=== PATIENT | female | born 1940 | race Two or more races ===

== ENCOUNTER 2019-07-27 10:09 | Emergency (ER) | payer MEDICARE, OTHER ==
[2019-07-27 10:19] VITALS: RESP 18
[2019-07-27] MEDS ORDERED: LIDOCAINE 1% INJ 10MG/ML (20 ML MDV) SQ ONE (10:27)
[2019-07-27] MEDS ORDERED: DIPH,PERTUS(ACELL)TETVAC-LF 0.5 ML VIAL IM ONE (10:27)
[2019-07-27] MEDS ORDERED: RABIES VACCINE (PCEC) 2.5 UNIT KIT IM ONE (10:28)
[2019-07-27] MEDS ORDERED: RABIES IMMUNE GLOB 300 UNIT/ML 1 ML VIAL IM ONE ×2 (10:28→10:45)
--- NOTE | 2019-07-27 10:38 | ED ---
Wound/Laceration HPI - General Chief Complaint: Wound/Laceration Stated Complaint: Hand laceration Time Seen by Provider: 07/27/19 10:21 Source: patient, RN notes reviewed Mode of arrival: ambulatory Limitations: no limitations - History of Present Illness Initial Comments: This is a 70-year-old female sent emergency Department chief complaint of fall, Bite and scratches. Patient states she heard a noise around 7 AM this morning patient states that she went out slipped on her deck fell to her right side. She has minimal right hip pain she is able to family. Denies any head injury no loss conscious. She states she fell rate in the midst of her cat and feral cat fighting. Patient states that she has multiple bite calvo, scratch calvo to her right arm. Patient denies any chest pain or shortness breath. Patient's unsure when her last tetanus was. Patient states that she did thoroughly clean out the wound. - Related Data Previous Rx's Medication Instructions Recorded Amoxicillin/Potassium Clav 1 tab PO Q12HR #20 tab 07/27/19 [Augmentin 875-125 Tablet] Allergies Allergy/AdvReac Type Severity Reaction Status Date / Time codeine Allergy Confusion Verified 07/27/19 10:20 Review of Systems ROS Statement: Those systems with pertinent positive or pertinent negative responses have been documented in the HPI. ROS Other: All systems not noted in ROS Statement are negative. 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 Absent: scleral icterus, conjunctival injection, periorbital swelling ENT exam: Present: normal exam, normal oropharynx, mucous membranes moist Neck exam: Present: normal inspection. Absent: tenderness, meningismus, lymphadenopathy Respiratory exam: Present: normal lung sounds bilaterally. Absent: respiratory distress, wheezes, rales, rhonchi, stridor Cardiovascular Exam: Present: regular rate, normal rhythm, normal heart sounds. Absent: systolic murmur, diastolic murmur, rubs, gallop, clicks Extremities exam: Present: other (Right hand there are 3 lacerations to approximately 3 cm, and two 2 cm there is minimal bleeding at this time there are multiple puncture wounds, scratch calvo noted over the right forearm no active bleeding patient has full range of motion of the right hand, right forearm mild tenderness the right hand neurovascular intact, right hip there is minimal tenderness on the posterior aspect, she does have full range of motion she is able to ambulate with minimal difficulty. Neurovascular intact remaining extremity exam within normal limits.) Back exam: Present: full ROM. Absent: tenderness, paraspinal tenderness, vertebral tenderness Neurological exam: Present: alert, oriented X3, CN II-XII intact, reflexes normal. Absent: motor sensory deficit Skin exam: Present: warm, dry, intact, normal color. Absent: rash Course Vital Signs 07/27/19 10:11 Temperature 97.9 F Pulse Rate 104 H Respiratory 18 Rate Blood Pressure 167/82 O2 Sat by Pulse 98 Oximetry Procedures - Laceration Laceration #1 Consent Obtained: verbal consent Indication: laceration Site: hand (Right hand) Size (cm): 3 Description: irregular Depth: simple, single layer Anesthetic Used: lidocaine 1%, without epi Anesthesia Technique: local infiltration Amount (mls): 3 Pre-repair: wound explored, irrigated extensively, deep structures intact Type of Sutures: nylon Size of Sutures: 4-0 Number of Sutures: 3 Technique: simple, interrupted Patient Tolerated Procedure: well, no complications Laceration #2 Consent Obtained: verbal consent Indication: laceration Site: hand (Right hand) Size (cm): 2 Description: linear Depth: simple, single layer Anesthetic Used: lidocaine 1%, without epi Anesthesia Technique: local infiltration Amount (mls): 3 Pre-repair: wound explored, irrigated extensively Type of Sutures: nylon Size of Sutures: 4-0 Number of Sutures: 2 Technique: simple, interrupted, running Patient Tolerated Procedure: well, no complications Laceration #3 Consent Obtained: verbal consent Indication: laceration Site: hand (Right hand) Size (cm): 2 Description: linear Depth: simple, single layer Anesthetic Used: lidocaine 1%, without epi Anesthesia Technique: local infiltration Amount (mls): 3 Pre-repair: wound explored, irrigated extensively, deep structures intact Type of Sutures: nylon Size of Sutures: 4-0 Number of Sutures: 2 Technique: simple, interrupted Patient Tolerated Procedure: well, no complications Medical Decision Making - Medical Decision Making 78-year-old female presented for fall, cat bite and scratches. Her wounds were thoroughly cleaned, tetanus is updated, 3 lacerations were closed using sutures were loosely approximated. Patient was given rabies vaccine and immunoglobulin. Patient was given prescription for additional days for repeat vaccine. She was placed on oral antibiotics. She was given strict return parameters for signs and symptoms of infection. Disposition Clinical Impression: Cat bite of hand, Laceration of right hand, Contusion of right hip Disposition: HOME SELF-CARE Condition: Stable Instructions (If sedation given, give patient instructions): Animal Bite (ED), Care For Your Stitches (DC) Additional Instructions: Have sutures removed in 10-14 days. Please return to the Emergency Department if symptoms worsen or any other concerns. Prescriptions: Amoxicillin/Potassium Clav [Augmentin 875-125 Tablet] 1 tab PO Q12HR #20 tab Is patient prescribed a controlled substance at d/c from ED?: No Referrals: Elton Quezada MD [Primary Care Provider] - 1-2 days Time of Disposition: 11:47
[2019-07-27] MEDS ORDERED: RABIES IMMUNE GLOB 300 UNIT/ML 5 ML VIAL IM ONE (10:45)
--- NOTE | 2019-07-27 11:07 | XR ---
EXAMINATION TYPE: XR hand complete RT DATE OF EXAM: 07/27/2019 COMPARISON: None HISTORY: Puncture wounds from Cats TECHNIQUE: Three-view right hand FINDINGS: No radiopaque foreign bodies are evident. No acute fractures or dislocations are evident. T here is soft tissue swelling and some injury along the dorsum of the hand. IMPRESSION: 1. No acute osseous abnormality right hand. 2. Soft tissue swelling in injury along the dorsum of the hand.
--- NOTE | 2019-07-27 11:08 | XR ---
EXAMINATION TYPE: XR Hip RT and AP Pelvis DATE OF EXAM: 07/27/2019 COMPARISON: None HISTORY: Fall, pain TECHNIQUE: 2 view right hip supplemented with AP pelvis FINDINGS: Femoral heads articulate with the acetabulum. Mild joint space narrowing is present. Symphy sis pubis and sacroiliac joints are intact. Degenerative changes are at sacroiliac joints. No acute fracture at the right hip is evident. IMPRESSION: 1. No acute osseous abnormality right hip
[2019-07-27 12:45] VITALS: BP 178/90; PULSE 94; TEMP 98.6
== END 2019-07-27 12:00 | disposition home or self-care (01) ==
LOC: SUPCPDRO 10:09 → EC 10:09
DX: S41.151A Open bite of right upper arm, initial encounter (principal); S61.411A Laceration without foreign body of right hand, initial encounter; S70.01XA Contusion of right hip, initial encounter; Z29.14 Encounter for prophylactic rabies immune globulin; Z23 Encounter for immunization; Z88.5 Allergy status to narcotic agent; W01.0XXA Fall on same level from slipping, tripping and stumbling without subsequent striking against object, initial encounter; W55.01XA Bitten by cat, initial encounter; Y93.89 Activity, other specified; Y92.009 Unspecified place in unspecified non-institutional (private) residence as the place of occurrence of the external cause
CPT/HCPCS: 73502; 73130; 90675; 90715; 90375 ×2; 90471; 96372 ×3; 99283; 12002; J2001

== ENCOUNTER 2019-07-28 08:44 | Inpatient (IN) | payer MEDICARE, OTHER ==
[2019-07-28] MEDS ORDERED: AMPICILLIN-SULBACTAM 3 GM in SODIUM CHLORIDE 0.9% 100 ML IVPB STA (09:15)
--- NOTE | 2019-07-28 09:18 | ED ---
General Adult HPI - General Chief complaint: Skin/Abscess/Foreign Body Stated complaint: Revisit/cat bite Time Seen by Provider: 07/28/19 08:56 Source: patient Mode of arrival: ambulatory Limitations: no limitations - History of Present Illness Initial comments: Dictation was produced using [employer] dictation software. please excuse any grammatical, word or spelling errors. This patient was cared for during a federal and state declared state of e mergency secondary to Covid 19 Chief Complaint: 78-year-old female past surgical history of COPD presents with worsening right hand pain. History of Present Illness: Patient is 78-year-old female she was attacked by a stray cat yesterday morning after there was a confrontation between her cat and the stray cat. Patient states she was bitten and scratched several times to the right upper extremity. Patient has had severe extremity infection in the past that she reports almost lead to an amputation. She was seen here yesterday provided with antibiotics and rabies treatment. She was told to return to the emergency Department with any worsening symptoms. Since being discharged she states that her right hand has been getting more swollen making it difficult for her to close her fingers. She complains of increased pain to the dorsum of the right hand. She denies any constitutional symptoms. The ROS documented in this emergency department record has been reviewed and confirmed by me. Those systems with pertinent positive or negative responses have been documented in the HPI. All other systems are other negative and/or noncontributory. PHYSICAL EXAM: General Impression: Alert and oriented x3, not in acute distress HEENT: Normocephalic atraumatic, extra-ocular movements intact, pupils equal and reactive to light bilaterally, mucous membranes moist. Cardiovascular: Heart regular rate and rhythm Chest: Able to complete full sentences, no retractions, no tachypnea Abdomen: abdomen soft, non-tender, non-distended, no organomegaly Musculoskeletal: Pulses present and equal in all extremities, no peripheral edema Motor: no focal deficits noted Neurological: CN II-XII grossly intact, no focal motor or sensory deficits noted Skin: Intact with no visualized rashes Right upper extremity: Lacerations are clean and dry, dorsum of the right hand is erythematous and warm to the touch swelling. There is several superficial abrasions to the right forearm. There is no lymphadenopathy to the axillary area Psych: Normal affect and mood ED course: y Old female with cellulitic changes to the right hand after bite injury from a cat history. Vital signs upon arrival are within except limits. Clinical presentation consistent with animal bite cellulitis. Laboratory evaluation obtained. Leukocytosis 11.5. ESR 74, glucose 116, C- reactive protein of 47.4. Considering elevation of inflammatory markers patient be admitted for IV antibiotics and medical monitoring. Discussed patient case with Dr. Mike who is acceptable of patient's care. He requested infectious disease be on consult. Patient was given Unasyn IV. She is agreeable with disposition. EKG interpretation: Ventricular rate 91, normal sinus rhythm, MA 160, QRS 90, QTc 462. No MA prolongation, no QTC prolongation, no ST or T-wave changes noted. Overall, this EKG is unremarkable - Related Data Previous Rx's Medication Instructions Recorded Amoxicillin/Potassium Clav 1 tab PO Q12HR #20 tab 07/27/19 [Augmentin 875-125 Tablet] Allergies Allergy/AdvReac Type Severity Reaction Status Date / Time codeine Allergy Confusion Verified 07/28/19 08:52 Review of Systems ROS Statement: Those systems with pertinent positive or pertinent negative responses have been documented in the HPI. ROS Other: All systems not noted in ROS Statement are negative. 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, kidney stones Smoking Status: Never smoker Past Alcohol Use History: None Reported Past Drug Use History: None Reported General Exam Limitations: no limitations Course Vital Signs 07/28/19 07/28/19 08:50 10:00 Temperature 99.0 F 99.0 F Pulse Rate 98 89 Respiratory 18 18 Rate Blood Pressure 180/98 156/88 O2 Sat by Pulse 96 98 Oximetry Medical Decision Making - Lab Data Result diagrams: 07/28/19 09:25 07/28/19 09:25 Lab Results 07/28/19 07/28/19 07/28/19 Range/Units 09:25 09:25 09:25 WBC 11.5 H (3.8-10.6) k/uL RBC 4.29 (3.80-5.40) m/uL Hgb 13.1 (11.4-16.0) gm/dL Hct 41.4 (34.0-46.0) % MCV 96.4 (80.0-100.0) fL MCH 30.5 (25.0-35.0) pg MCHC 31.6 (31.0-37.0) g/dL RDW 13.7 (11.5-15.5) % Plt Count 204 (150-450) k/uL Neutrophils % 72 % Lymphocytes % 18 % Monocytes % 6 % Eosinophils % 1 % Basophils % 1 % Neutrophils # 8.3 H (1.3-7.7) k/uL Lymphocytes # 2.1 (1.0-4.8) k/uL Monocytes # 0.7 (0-1.0) k/uL Eosinophils # 0.1 (0-0.7) k/uL Basophils # 0.1 (0-0.2) k/uL ESR 74 H (0-20) mm/hr Sodium 138 (137-145) mmol/L Potassium 4.4 (3.5-5.1) mmol/L Chloride 103 (98-107) mmol/L Carbon Dioxide 27 (22-30) mmol/L Anion Gap 8 mmol/L BUN 15 (7-17) mg/dL Creatinine 0.96 (0.52-1.04) mg/dL Est GFR (CKD-EPI)AfAm 66 (>60 ml/min/1.73 sqM) Est GFR (CKD-EPI)NonAf 57 (>60 ml/min/1.73 sqM) Glucose 116 H (74-99) mg/dL Plasma Lactic Acid Caleb 1.5 (0.7-2.0) mmol/L Calcium 9.3 (8.4-10.2) mg/dL C-Reactive Protein 47.4 H (<10.0) mg/L Disposition Clinical Impression: Cellulitis Disposition: ADMITTED IP TO THIS HOSP Condition: Fair Referrals: Fred Benoit MD [Primary Care Provider] - 1-2 days Decision Time: 10:54
[2019-07-28 09:46] LABS: Basophils # (A) 0.1 k/uL (0-0.2); Basophils % (A) 1 %; Eosinophils # (A) 0.1 k/uL (0-0.7); Eosinophils % (A) 1 %; HCT 41.4 % (34.0-46.0); HGB 13.1 gm/dL (11.4-16.0); Lymphocytes # (A) 2.1 k/uL (1.0-4.8); Lymphocytes % (A) 18 %; MCH 30.5 pg (25.0-35.0); MCHC 31.6 g/dL (31.0-37.0); MCV 96.4 fL (80.0-100.0); Mean Platelet Volume 7.5; Monocytes # (A) 0.7 k/uL (0-1.0); Monocytes % (A) 6 %; Neutrophils # (A) 8.3 k/uL (1.3-7.7); Neutrophils % (A) 72 %; Platelet Count 204 k/uL (150-450); RBC 4.29 m/uL (3.80-5.40); RDW 13.7 % (11.5-15.5); WBC 11.5 k/uL (3.8-10.6)
[2019-07-28 10:01] LABS: C Reactive Protein 47.4 mg/L (<10.0); Calcium 9.3 mg/dL (8.4-10.2); Potassium 4.4 mmol/L (3.5-5.1)
[2019-07-28 10:37] LABS: Erythrocyte Sedimentation Rate 74 mm/hr (0-20)
[2019-07-28] MEDS ORDERED: NALOXONE 0.4 MG/ML 1 ML VIAL IV PRN (10:51)
[2019-07-28] MEDS ORDERED: ACETAMINOPHEN TAB 325 MG TAB PO PRN (10:51)
[2019-07-28] MEDS: SODIUM CHLORIDE 0.9% 1,000 ML IV SCH (11:02)
[2019-07-28] MEDS: oxyCODONE-APAP 5-325MG 1 EACH TAB PO PRN ×2 (12:24→20:32)
--- NOTE | 2019-07-28 13:55 | P.CNOR ---
History of Present Illness - [facility] Consult date: 07/28/19 History of present illness: This patient is a 78-year-old female The presented to [facility] ER yesterday with complaints of increasing right hand Pain and swelling. The patient initially presented to the ER yesterday, after being bit by a stray cat. She states he stray cat and her own cat got into a fight, and she fell in betw een them and the stray cat began scratching her right hand. Upon presentation to the ER, her wounds were irrigated and closed, rabies and tetanus vaccine were updated. The patient was discharged on Augmentin and instructed to return if symptoms worsen. Patient states that this morning she developed significant redness and warmth, as well as swelling and pain to the right hand. Therefore, she returned to the emergency department for evaluation. Patient was afebrile upon presentation, white blood cell count 11.5, ESR 74, CRP 47.4. The patient was admitted under the care by internal medicine with consult with orthopedic surgery. At the time of my exam, the patient is complaining of isolated right hand pain. She states she is also experiencing back pain, although this is chronic and is u nchanged from her fall. She states otherwise she feels well. She denies chest pain, shortness of breath, nausea, vomiting, fevers, chills. She denies loss of appetite. Vital signs stable. 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, kidney stones Past Anesthesia/Blood Transfusion Reactions: No Reported Reaction Past Psychological History: No Psychological Hx Reported Smoking Status: Former smoker Past Alcohol Use History: None Reported Past Drug Use History: None Reported - Past Family History Mother Family Medical History: Cancer Additional Family Medical History / Comment(s): brain tumor Father Family Medical History: CVA/TIA Medications and Allergies Home Medications Medication Instructions Recorded Confirmed Type Amoxicillin/Potassium Clav 1 tab PO Q12HR #20 tab 07/27/19 07/28/19 Rx [Augmentin 875-125 Tablet] Aspirin EC [Ecotrin] 325 mg PO DAILY PRN 07/28/19 07/28/19 History Cetirizine HCl 10 mg PO DAILY 07/28/19 07/28/19 History Allergies Allergy/AdvReac Type Severity Reaction Status Date / Time codeine Allergy Confusion Verified 07/28/19 10:57 Physical Examination On examination, the patient is sitting in bed in no apparent distress. She is alert and oriented 3. Her head appears normocephalic and traumatic. Her breathing appears unlabored. On inspection of her right upper extremity, there are multiple superficial lacerations to the dorsal forearm. On inspection of the right hand, there Is a laceration between the bases of the middle finger and ring finger with intact nylon sutures. There are also 2 additional lacerations to the more proximal dorsum of the hand with intact nylon sutures. The skin bridge between these 2 lacerations appears nonviable. A very small amount of serosanguineous drainage present. There is diffuse swelling, erythema, and warmth of the dorsum of the hand and wrist with extension into the dorsal forearm. There are no palpable areas of fluctuance or areas suspicious for abscess or fluid collection. Radial pulse +2. The hand is warm and well perfused. Motor and sensory function intact. No pain with PROM of the right shoulder, elbow, wrist, or fingers. Results Right hand x-ray 07/27/19: No acute fractures or foreign bodies. - Labs Labs: Abnormal Lab Results - Last 24 Hours (Table) 07/28/19 07/28/19 Range/Units 09:25 09:25 WBC 11.5 H (3.8-10.6) k/uL Neutrophils # 8.3 H (1.3-7.7) k/uL ESR 74 H (0-20) mm/hr Glucose 116 H (74-99) mg/dL C-Reactive Protein 47.4 H (<10.0) mg/L H & H 07/28/19 Range/Units 09:25 Hgb 13.1 (11.4-16.0) gm/dL Hct 41.4 (34.0-46.0) % Result Diagrams: 07/28/19 09:25 07/28/19 09:25 Assessment and Plan Assessment: Multiple cat bites right hand, with surrounding cellulitis Plan: - The clinical findings were discussed with the patient. The patient was discussed with Dr. Holguin. No surgical intervention is planned at this time. - Recommend continuation of IV antibiotics under the discretion of Dr. Sow. - We will continue to follow patient very closely and re-evaluate her clinical course in the morning.
[2019-07-28] MEDS ORDERED: LISINOPRIL 5 MG TAB PO STA (14:31)
--- NOTE | 2019-07-28 14:38 | P.HPIM ---
History of Present Illness H&P Date: 07/28/19 This is a 78 year old female patient of Dr. Benoit with past medical h istory of shingles, borderline hypertension, hyperlipidemia on diet control, COPD, history of uterine cancer status post hysterectomy at age 28, generalized osteoarthritis, eczema, history of fall from fallopian tube mass removed, history of migraine headaches resolved after menopause, remote history of tobacco use and dependence. The patient states that yesterday morning she stepped out of her house and there was a feral cat outside and her own cat in the house. She ended up falling as a slip and fall and the cats attacked each other. She was in the middle of it ended up getting bitten and scratched on the right arm, forearm and hand. She initially came into [facility] emergency center yesterday and had stitches placed, tetanus status updated, received her first dose of rabies and started on Augmentin for home. Patient was discharged home but she continued to have increasing redness and swelling to the right hand and forearm. Patient denies any loss of conscious ness with fall, no head injury. She does complain of some bruising and generalized aches and pains around her posterior ribs and lower back area. She does have pain with movement of bilateral hips. Pelvic and right hip x-ray showed no acute fracture on initial presentation. Hand x-ray also showed no acute osseous abnormality. Patient was started on Unasyn and admitted to the [facility] floor with consult for Dr. Sow and we have added in a consult with Dr. Prince Orellana. Review of Systems Constitutional: Denies chills, Denies fever, Denies poor appetite, Denies weight loss Eyes: denies blurred vision, denies pain Ears, nose, mouth and throat: Denies dysphagia, Denies nasal congestion, Denies nasal discharge, Denies vertigo Cardiovascular: Denies chest pain, Denies decreased exercise tolerance, Denies dyspnea on exertion, Denies edema, Denies leg edema, Denies lightheadedness, Denies shortness of breath, Denies syncope Respiratory: Denies cough, Denies cough with sputum, Denies dyspnea, Denies excessive sputum, Denies hemoptysis, Denies home oxygen, Denies respiratory infections, Denies sleep apnea Gastrointestinal: Denies abdominal pain, Denies diarrhea, Denies loss of appetite, Denies nausea, Denies vomiting Genitourinary: Denies dysuria, Denies hematuria, Denies urgency, Denies urinary frequency Menstruation: Reports postmenopausal Musculoskeletal: Denies frequent falls, Denies gait dysfunction, Denies muscle weakness, Denies myalgias Integumentary: Reports wounds, Denies pruritus, Denies rash Neurological: Denies change in mentation, Denies change in speech, Denies gait dysfunction, Denies numbness, Denies seizures, Denies weakness Psychiatric: Denies anxiety, Denies depression Endocrine: Denies fatigue, Denies weight change Past Medical History Past Medical History: Cancer, COPD, Hyperlipidemia, Hypertension, Osteoarthritis (OA), Skin Disorder Additional Past Medical History / Comment(s): kidney stones History of Any Multi-Drug Resistant Organisms: None Reported Past Surgical History: Appendectomy, Hysterectomy Additional Past Surgical History / Comment(s): tumor removed from fallopian tube by Dr. Mcfarland in at [facility] in [place], kidney stones Smoking Status: Never smoker Past Alcohol Use History: None Reported Additional Past Alcohol Use History / Comment(s): Patient was a smoker of one pack per day for 30 years, rare alcohol use, no marijuana or illicit drug use. Patient is and lives alone. 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 Past Drug Use History: None Reported - Past Family History Mother Family Medical History: Cancer Additional Family Medical History / Comment(s): Mother at age 85 from a brain tumor. Father Family Medical History: CVA/TIA Additional Family Medical History / Comment(s): Father at age 75 from a CVA. Sister(s) Additional Family Medical History / Comment(s): Patient has 1 sister but she has no contact with her as her sister stole her identity. Brother(s) Additional Family Medical History / Comment(s): Patient does not have any brothers. Patient has 4 children, one at age 7 weeks, other children with no major medical problems. Patient is also adopted 1 child. Medications and Allergies Home Medications Medication Instructions Recorded Confirmed Type Amoxicillin/Potassium Clav 1 tab PO Q12HR #20 tab 07/27/19 07/28/19 Rx [Augmentin 875-125 Tablet] Aspirin EC [Ecotrin] 325 mg PO DAILY PRN 07/28/19 07/28/19 History Cetirizine HCl 10 mg PO DAILY 07/28/19 07/28/19 History Allergies Allergy/AdvReac Type Severity Reaction Status Date / Time codeine Allergy Confusion Verified 07/28/19 10:57 Physical Exam Vitals: Vital Signs Temp Pulse Resp BP Pulse Ox 07/28/19 10:00 99.0 F 89 18 156/88 98 07/28/19 08:50 99.0 F 98 18 180/98 96 Intake and Output 07/27/19 07/28/19 07/28/19 22:59 06:59 14:59 Other: Weight 90.718 kg Gen: This is a 78-year-old female. Patient is resting on the ear structure and appears to be comfortable and in no acute distress. HEENT: Head is atraumatic, normocephalic. Pupils equal, round. Sclerae is anict andrzej. NECK: Supple. No JVD. No lymphadenopathy. No thyromegaly. LUNGS: Clear to auscultation. No wheezes or rhonchi. No intercostal retractions. HEART: Regular rate and rhythm. No murmur. ABDOMEN: Soft. Bowel sounds are present. No masses. No tenderness. BACK: No ecchymosis noted to the back region. EXTREMITIES: No pedal edema. No calf tenderness. Significant wounds to the right hand and right forearm with erythema and edema with decreased range of motion to the hand and wrist. Bruising noted to the left hand but full range of motion NEUROLOGICAL: Patient is awake, alert and oriented x3. Cranial nerves 2 through 12 are grossly intact. Results CBC & Chem 7: 07/28/19 09:25 07/28/19 09:25 Labs: Abnormal Lab Results - Last 24 Hours (Table) 07/28/19 07/28/19 Range/Units 09:25 09:25 WBC 11.5 H (3.8-10.6) k/uL Neutrophils # 8.3 H (1.3-7.7) k/uL ESR 74 H (0-20) mm/hr Glucose 116 H (74-99) mg/dL C-Reactive Protein 47.4 H (<10.0) mg/L Thrombosis Risk Factor Assmnt - DVT/VTE Prophylaxis DVT/VTE Prophylaxis: Pharmacologic Prophylaxis ordered Assessment and Plan Plan: 1. Multiple cat bites and scratches to the right hand and forearm with surrounding cellulitis with sutures in place. Patient received her first dose of rabies, tetanus status has been updated. Patient failed outpatient treatment. Consult with orthopedic hand surgeon. 2. Borderline hypertension, presented with hypertension. Patient will be started on lisinopril 5 mg daily. 3. Borderline diabetes mellitus type 2. Diet will be changed to consistent carb. 4. Hyperlipidemia, diet controlled. 5. COPD, stable without exacerbation. 6. History of uterine cancer status post hysterectomy. 7. History of fallopian tube tumor status post resection. 8. History of shingles, stable. 9. Remote history of tobacco use and dependence. 10. DVT prophylaxis. Heparin subcu. 11. GI prophylaxis. Pepcid. 11. COVID-19 testing. Patient will be admitted to the hospital for a minimum of 2 night stay. Discharge plan: Most likely return home. Impression and plan of care have been directed as dictated by the signing physician. Alea Cervantes nurse practitioner acting as scribe for signing physician.
[2019-07-28] MEDS ORDERED: AMPICILLIN-SULBACTAM 3 GM in SODIUM CHLORIDE 0.9% 100 ML IVPB SCH (16:00)
[2019-07-28] MEDS: AMPICILLIN-SULBACTAM 3 GM in SODIUM CHLORIDE 0.9% 100 ML IVPB SCH ×2 (17:28→23:39)
[2019-07-28] MEDS: HEPARIN SODIUM,PORCINE 5,000 UNIT/ML 1 ML VIAL SQ SCH (20:33)
--- NOTE | 2019-07-29 00:27 | P.CONS ---
History of Present Illness - Reason for Consult Consult date: 07/28/19 right hand cat bite cellulitis Requesting physician: Elliot Mike - Chief Complaint right hand pain swelling and redness x 1 day - History of Present Illness Patient is a 78-year female presenting to the ER with chief complaints of worsening pain swelling redness of the right hand patient apparently did have a fall yesterday the patient went out to find what was going outside when she noticed a fight between 2 cats the patient fell in the middle of those 2 cats and 1 of the cat starting to scratch her right hand the patient subsequently presented to [facility] ER the patient has been ordered by the ER physician patient was has been irrigated and closed front desk representative specimen updated and agree discharged home on oral Augmentin however the patient has noticed to have worsening swelling and redness of the right forearm and hand area patient describes the pain to be more of a throbbing almost 10 out of 10 in severity with associated swelling redness and some clear drainage on presented to the hospital bed to have low-grade fever of 9094 height she did have white level 11.5 CRP was 47.4 patient has been admitted to hospital he was started on Unasyn infectious disease was consulted for further management of antibiotic therapy. Review of Systems Positive point has been mentioned in HPI rest of the systems are negative Past Medical History Past Medical History: Cancer, COPD, Hyperlipidemia, Hypertension, Osteoarthritis (OA), Skin Disorder Additional Past Medical History / Comment(s): kidney stones History of Any Multi-Drug Resistant Organisms: None Reported Past Surgical History: Appendectomy, Hysterectomy Additional Past Surgical History / Comment(s): tumor removed from fallopian tube by Dr. Mcfarland in at [facility] in [place], kidney stones Past Anesthesia/Blood Transfusion Reactions: No Reported Reaction Smoking Status: Never smoker Past Alcohol Use History: None Reported Additional Past Alcohol Use History / Comment(s): Patient was a smoker of one pack per day for 30 years, rare alcohol use, no marijuana or illicit drug use. Patient is and lives alone. 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 Past Drug Use History: None Reported - Past Family History Mother Family Medical History: Cancer Additional Family Medical History / Comment(s): Mother at age 85 from a brain tumor. Father Family Medical History: CVA/TIA Additional Family Medical History / Comment(s): Father at age 75 from a CVA. Sister(s) Additional Family Medical History / Comment(s): Patient has 1 sister but she has no contact with her as her sister stole her identity. Brother(s) Additional Family Medical History / Comment(s): Patient does not have any brothers. Patient has 4 children, one at age 7 weeks, other children with no major medical problems. Patient is also adopted 1 child. Medications and Allergies Home Medications Medication Instructions Recorded Confirmed Type Amoxicillin/Potassium Clav 1 tab PO Q12HR #20 tab 07/27/19 07/28/19 Rx [Augmentin 875-125 Tablet] Aspirin EC [Ecotrin] 325 mg PO DAILY PRN 07/28/19 07/28/19 History Cetirizine HCl 10 mg PO DAILY 07/28/19 07/28/19 History Allergies Allergy/AdvReac Type Severity Reaction Status Date / Time codeine Allergy Confusion Verified 07/28/19 10:57 Physical Exam Vitals: Vital Signs Temp Pulse Pulse Resp BP BP Pulse Ox 07/28/19 11:45 99.1 F 85 16 189/75 98 07/28/19 10:00 99.0 F 89 18 156/88 98 07/28/19 08:50 99.0 F 98 18 180/98 96 Intake and Output 07/27/19 07/28/19 07/28/19 22:59 06:59 14:59 Other: Weight 90.718 kg GENERAL DESCRIPTION: Elderly female lying in bed, no distress. No tachypnea or accessory muscle of respiration use. HEENT: Shows Pallor , no scleral icterus. Oral mucous membrane is dry. NECK: Trachea central, no thyromegaly. LUNGS: Unlabored breathing. Clear to auscultation anteriorly. No wheeze or crackle. HEART: S1, S2, regular rate and rhythm. ABDOMEN: Soft, no tenderness , guarding or rigidity EXTREMITIES: Right hand with diffuse swelling and redness with some skin necrosis no foul-smelling drainage with some scratch calvo on the right forearm sKIN: No rash, no masses palpable. NEUROLOGICAL: The patient is awake, alert, oriented x3, mood and affect normal. Results CBC & Chem 7: 07/28/19 09:25 07/28/19 09:25 Labs: Abnormal Lab Results - Last 24 Hours (Table) 07/28/19 07/28/19 Range/Units 09:25 09:25 WBC 11.5 H (3.8-10.6) k/uL Neutrophils # 8.3 H (1.3-7.7) k/uL ESR 74 H (0-20) mm/hr Glucose 116 H (74-99) mg/dL C-Reactive Protein 47.4 H (<10.0) mg/L Assessment and Plan Assessment: Patient with right hand cat bite cellulitis in this patient who did have extensive swelling and redness failing outpatient oral Augmentin more likely because of the burden of disease and will need to cover for the polymicrobial argelia of the cat health including gram-negative both aerobes and anaerobes (1) Cellulitis Current Visit: Yes Status: Acute Code(s): L03.90 - CELLULITIS, UNSPECIFIED SNOMED Code(s): 776679021 (2) Cat bite of hand Current Visit: No Status: Acute Code(s): S61.459A - OPEN BITE OF UNSPECIFIED HAND, INITIAL ENCOUNTER; W55.01XA - BITTEN BY CAT, INITIAL ENCOUNTER SNOMED Code(s): 259562257 Plan: 1-Unasyn 3 g every 6 hours 2-patient need to complete her rabies vaccination We will follow on clinical condition and cultures to further adjust medication if needed Thank you for this consultation we will follow the patient along with you Time with Patient: Greater than 30
[2019-07-29] MEDS: AMPICILLIN-SULBACTAM 3 GM in SODIUM CHLORIDE 0.9% 100 ML IVPB SCH ×4 (05:33→23:26)
[2019-07-29] MEDS: oxyCODONE-APAP 5-325MG 1 EACH TAB PO PRN ×3 (05:48→23:27)
[2019-07-29] MEDS: LISINOPRIL 5 MG TAB PO SCH (07:13)
[2019-07-29] MEDS: LORATADINE 10 MG TAB PO SCH (07:13)
[2019-07-29] MEDS: FAMOTIDINE 20 MG TAB PO SCH (07:13)
[2019-07-29] MEDS: HEPARIN SODIUM,PORCINE 5,000 UNIT/ML 1 ML VIAL SQ SCH ×2 (07:13→20:33)
[2019-07-29] MEDS: SODIUM CHLORIDE 0.9% 1,000 ML IV SCH (11:06)
--- NOTE | 2019-07-29 12:00 | P.PN ---
Progress Note - Text Progress Note Date: 07/29/19 Orthopedics: History of present illness: Patient is a very pleasant 78-year-old female who is seen and examined at the bedside for further evaluation in regards to right hand pain and swelling. She sustained injuries to her right forearm and right hand after being bitten by a stray cat. She had been seen in emergency department on 07/27/2019 and was prescribed an antibiotic medication. She had multiple sutures placed over reamed wounds to the posterior hand at that time. Her symptoms continued to worsen and she returned to the emergency room yesterday, 07/28/2019. She was diagnosed with cellulitis of the right hand. She is evaluated by infectious disease yesterday. She was started on Unasyn IV. Since that time, she has had significant improvement overall. She states she has better range of motion of the right hand. She has less swelling in the right hand. Her pain is been better controlled with the right hand. She states she has been seen by Dr. Sow today who is happy with her progress with IV antibiotics. She'll plan to continue the IV antibiotics. She continues to improve, she may plan for discharge home tomorrow, 07/30/2019, or 07/31/2019. Patient states she doesn't have much of an appetite but has been eating. She feels generally sore over the whole ordeal with a cat bite but does not complain of any other specific pain. Patient's past medical history does include COPD, hyperlipidemia, hypertension, and cancer. Physical Exam: Patient is awake, alert, and oriented 3 Vital signs stable Good chest excursion with deep inspiration and expiration Dressing over the left hand is removed during physical examination Evidence of improvement of the swelling over the left posterior hand Some swelling continues to be present over the fingers of the left hand Evidence of some bruising over the proximal phalanges of the right middle finger and ring fingers Evidence of 3 wounds over the posterior right hand in which the previously placed sutures remain intact Some bruising over the right posterior hand Multiple superficial wounds over the right forearm are scabbed over without any active drainage Evidence of some bruising over the underside of the right forearm Patient is able to perform some active range of motion of the fingers of the right hand in right wrist without significant difficulty Dressing is reapplied after physical examination the right hand with nonstick Telfa and stretch wrap Assessment: Status post cat bite to the right hand Status post cat scratches to the right forearm Right hand cellulitis Right hand pain Evidence of 3 wounds to the right posterior hand with sutures intact History of COPD Hyperlipidemia, hypertension, history of cancer Plan: 1. Since being admitted to the hospital and started on IV antibiotic medic ation, the patient's cellulitis and swelling of the right hand has had improvement. She has better range of motion of the right hand, fingers the right hand, and right wrist. She feels her pain is better controlled. She is not currently having any significant active drainage from her wound sites. The wounds over the posterior right hand have remained closed with previously placed suture. The superficial wounds over the right forearm are scabbed over without active drainage. She is not currently having any cellulitis extending up into the forearm. At this time, we'll plan to continue conservative treatment with dressing changes as needed over the right hand. We recommend continuing with IV antibiotics as set forth by Dr. Sow in infectious disease. We will continue to follow the patient closely. If the patient continues to improve we will plan to clear the patient for discharge home with appropriate antibiotic medication as prescribed by Dr. Sow in infectious disease. At the time of discharge, we will plan outpatient follow-up evaluation in the outpatient setting in approximately 1 week. Patient will plan to follow up with Dr. Holguin at [facility]. 2. Patient will continue be seen in exam by medicine and infectious disease
--- NOTE | 2019-07-29 12:57 | P.PN ---
Subjective Progress Note Date: 07/29/19 This is a 78 year old female patient of Dr. Benoit with past medical history of shingles, borderline hypertension, hyperlipidemia on diet control, COPD, history of uterine cancer status post hysterectomy at age 28, generalized osteoarthritis, eczema, history of fall from fallopian tube mass removed, history of migraine headaches resolved after menopause, remote history of tobacco use and dependence. The patient states that yesterday morning she stepped out of her house and there was a feral cat outside and her own cat in the house. She ended up falling as a slip and fall and the cats attacked each other. She was in the middle of it ended up getting bitten and scratched on the right arm, forearm and hand. She initially came into [facility] emergency center yesterday and had stitches placed, tetanus status updated, received her first dose of rabies and started on Augmentin for home. Patient was discharged home but she continued to have increasing redness and swelling to the right hand and forearm. Patient denies any loss of consciousness with fall, no head injury. She does complain of some bruising and generalized aches and pains around her posterior ribs and lower back area. She does have pain with movement of bilateral hips. Pelvic and right hip x-ray s howed no acute fracture on initial presentation. Hand x-ray also showed no acute osseous abnormality. Patient was started on Unasyn and admitted to the [facility] floor with consult for Dr. Sow and we have added in a consult with Dr. Prince Orellana. 07/28: Patient has been seen by Dr. Sow and continued on Unasyn. Patient also seen by orthopedics with no lymph or surgical intervention. Patient's erythema and edema is improved from yesterday. Dressing is in place. Rabies, second dose, is due tomorrow which will be ordered. We'll make sure outpatient rabies vaccines are ordered prior to her discharge. Anticipate discharge in the next 24-48 hours. Patient is afebrile, heart rate 87, blood pressure 145/53, pulse ox 97% on room air. Objective - Vital Signs Vital signs: Vital Signs Temp 99 F 07/29/19 07:07 Pulse 87 07/29/19 07:07 Resp 16 07/29/19 07:07 BP 145/53 05/21/20 07:07 Pulse Ox 97 07/29/19 07:07 Intake & Output 07/28/19 07/29/19 07/29/19 18:59 06:59 18:59 Weight 90.718 kg Other: # Voids 2 1 - Exam Review of Systems Constitutional: Denies chills, Denies fever, Denies poor appetite, Denies weight loss Ears, nose, mouth and throat: Denies dysphagia, Denies nasal congestion, Denies nasal discharge, Denies vertigo Cardiovascular: Denies chest pain, Denies decreased exercise tolerance, Denies dyspnea on exertion, Denies edema, Denies leg edema, Denies lightheadedness, Denies shortness of breath, Denies syncope Respiratory: Denies cough, Denies cough with sputum, Denies dyspnea, Denies excessive sputum, Denies hemoptysis, Denies home oxygen, Denies respiratory infections, Denies sleep apnea Gastrointestinal: Denies abdominal pain, Denies diarrhea, Denies loss of appetite, Denies nausea, Denies vomiting Genitourinary: Denies dysuria, Denies hematuria, Denies urgency, Denies urinary frequency Menstruation: Reports postmenopausal Musculoskeletal: Denies frequent falls, Denies gait dysfunction, Denies muscle weakness, Denies myalgias Integumentary: Reports wounds, Denies pruritus, Denies rash Neurological: Denies change in mentation, Denies change in speech, Denies gait dysfunction, Denies numbness, Denies seizures, Denies weakness Psychiatric: Denies anxiety, Denies depression Endocrine: Denies fatigue, Denies weight change Physical examination Gen: This is a 78-year-old female. Patient is resting on the ear structure and appears to be comfortable and in no acute distress. HEENT: Head is atraumatic, normocephalic. Pupils equal, round. Sclerae is anicteric. NECK: Supple. No JVD. No lymphadenopathy. No thyromegaly. LUNGS: Clear to auscultation. No wheezes or rhonchi. No intercostal retractions. HEART: Regular rate and rhythm. No murmur. ABDOMEN: Soft. Bowel sounds are present. No masses. No tenderness. BACK: No ecchymosis noted to the back region. EXTREMITIES: No pedal edema. No calf tenderness. Significant wounds to the right hand and right forearm with erythema and edema which are both improved from yesterday. Patient has minimal range of motion to the hand and wrist. Bruising noted to the left hand but full range of motion NEUROLOGICAL: Patient is awake, alert and oriented x3. Cranial nerves 2 through 12 are grossly intact. - Labs CBC & Chem 7: 07/28/19 09:25 07/28/19 09:25 Labs: Abnormal Lab Results - Last 24 Hours (Table) 07/28/19 07/28/19 Range/Units 09:25 09:25 WBC 11.5 H (3.8-10.6) k/uL Neutrophils # 8.3 H (1.3-7.7) k/uL ESR 74 H (0-20) mm/hr Glucose 116 H (74-99) mg/dL C-Reactive Protein 47.4 H (<10.0) mg/L Assessment and Plan Plan: 1. Multiple cat bites and scratches to the right hand and forearm with surrounding cellulitis with sutures in place. Patient received her first dose of rabies, tetanus status has been updated. Patient failed outpatient treatment. Consults with orthopedic surgeon and Dr. Sow appreciated. Patient is due for second dose of rabies vaccine tomorrow which will be ordered. business segment manager contacted to arrange for outpatient vaccines 4 days 7 and 14. 2. Borderline hypertension, presented with hypertension. Patient will be started on lisinopril 5 mg daily. 3. Borderline diabetes mellitus type 2. Diet will be changed to consistent carb. 4. Hyperlipidemia, diet controlled. 5. COPD, stable without exacerbation. 6. History of uterine cancer status post hysterectomy. 7. History of fallopian tube tumor status post resection. 8. History of shingles, stable. 9. Remote history of tobacco use and dependence. 10. DVT prophylaxis. Heparin subcu. 11. GI prophylaxis. Pepcid. 11. COVID-19 infection not present. Discharge plan: Most likely return home. Impression and plan of care have been directed as dictated by the signing physician. Alea Cervantes nurse practitioner acting as scribe for signing physician.
--- NOTE | 2019-07-29 20:22 | PN ---
PROGRESS NOTE DATE OF SERVICE: 07/29/2019 REASON FOR FOLLOWUP: Right hand cat bite abscess cellulitis. INTERVAL HISTORY: The patient is currently afebrile. Patient is breathing comfortably. Discomfort to the right hand is slightly decreased. No chest pain, shortness of breath or cough. No abdominal pain or diarrhea. PHYSICAL EXAMINATION: Blood pressure 138/79 with a pulse of 87, temperature 98.1. She is 96% on room air. General description: The patient is an elderly female lying in bed in no distress. Respiratory system: Unlabored breathing. Clear to auscultation anteriorly. Heart S1, S2. Regular rate and rhythm. Abdomen soft, no tenderness. Right hand is currently dressed up. No obvious drainage on the dressing. LABS: Blood culture negative. No CBC was done today. DIAGNOSTIC IMPRESSION AND PLAN: Patient with right hand and forearm cat bite abscess and cellulitis, patient failing outpatient oral Augmentin. Currently covered with Unasyn to continue. Re-evaluate the wound tomorrow and monitor clinical course closely. MMODL / IJN: [id number] /
[2019-07-30] MEDS: AMPICILLIN-SULBACTAM 3 GM in SODIUM CHLORIDE 0.9% 100 ML IVPB SCH ×4 (05:40→23:56)
[2019-07-30] MEDS: oxyCODONE-APAP 5-325MG 1 EACH TAB PO PRN ×3 (06:13→17:09)
[2019-07-30] MEDS ORDERED: RABIES VACCINE (PCEC) 2.5 UNIT KIT IM ONE (08:00)
--- NOTE | 2019-07-30 09:05 | P.PN ---
Subjective Progress Note Date: 07/30/19 Principal diagnosis: Right upper extremity cat bite Patient is a pleasant 70-year-old female seen at bedside this morning. We are following her for cat bite and wounds to the right upper extremity. She was admitted through the emergency department on 07/28/2019. She had her wounds irrigated and closed. She's been on IV antibiotics. She has continued to improve daily. She has no new complaints today. She is denying fever or chills. She has no new numbness or tingling. Objective - Vital Signs Vital signs: Vital Signs Temp 98.4 F 07/30/19 07:09 Pulse 80 07/30/19 07:09 Resp 16 07/30/19 07:09 BP 155/80 07/30/19 07:09 Pulse Ox 94 L 07/30/19 07:09 Intake & Output 07/29/19 07/30/19 07/30/19 18:59 06:59 18:59 Other: Voiding Method Toilet Toilet # Voids 3 2 - Exam Inspection of the right upper extremity shows bandage in place at the right hand. There is no active bleeding or drainage through the bandage. Bandage is taken down. There are [address] There is no diffuse erythema, swelling, bleeding or drainage. Neurovascular status is intact throughout the hand and digits including motor and sensation. There are healing scratch wounds at the dorsum of the right forearm. There is no progressive erythema, fluid collection, bleeding or drainage. Neurovascular status of the proximal right upper extremity is intact as well. 2+ radial pulses present and less than 2 second capillary refill is present. - Constitutional General appearance: Present: no acute distress - Labs CBC & Chem 7: 07/28/19 09:25 07/28/19 09:25 Labs: Microbiology - Last 24 Hours (Table) 07/28/19 09:25 Blood Culture - Preliminary Blood No Growth after 24 hours Assessment and Plan (1) Cat bite of hand Narrative/Plan: She'll continue with wound care and IV antibiotics per infectious disease. She continues to improve. I do not see any areas that will require immediate surgical intervention. We will continue to monitor her daily and she may be discharged when okay with infectious disease. Current Visit: No Status: Acute Priority: Medium Code(s): S61.459A - OPEN BITE OF UNSPECIFIED HAND, INITIAL ENCOUNTER; W55.01XA - BITTEN BY CAT, INITIAL ENCOUNTER SNOMED Code(s): 026060979 Time with Patient: Less than 30
[2019-07-30] MEDS: HEPARIN SODIUM,PORCINE 5,000 UNIT/ML 1 ML VIAL SQ SCH ×2 (09:32→20:23)
[2019-07-30] MEDS: LISINOPRIL 5 MG TAB PO SCH (09:32)
[2019-07-30] MEDS: LORATADINE 10 MG TAB PO SCH (09:32)
[2019-07-30] MEDS: FAMOTIDINE 20 MG TAB PO SCH (09:32)
[2019-07-30 10:26] LABS: HGB 11.4 gm/dL (11.4-16.0); MCH 30.4 pg (25.0-35.0); MCHC 30.9 g/dL (31.0-37.0); MCV 98.1 fL (80.0-100.0); Mean Platelet Volume 8.3; Platelet Count 180 k/uL (150-450); RBC 3.77 m/uL (3.80-5.40); RDW 13.5 % (11.5-15.5)
--- NOTE | 2019-07-30 12:06 | P.PN ---
Subjective Progress Note Date: 07/30/19 This is a 78 year old female patient of Dr. Benoit with past medical history of shingles, borderline hypertension, hyperlipidemia on diet control, COPD, history of uterine cancer status post hysterectomy at age 28, generalized osteoarthritis, eczema, history of fall from fallopian tube mass removed, history of migraine headaches resolved after menopause, remote history of tobacco use and dependence. The patient states that yesterday morning she stepped out of her house and there was a feral cat outside and her own cat in the house. She ended up falling as a slip and fall and the cats attacked each other. She was in the middle of it ended up getting bitten and scratched on the right arm, forearm and hand. She initially came into [facility] emergency center yesterday and had stitches placed, tetanus status updated, received her first dose of rabies and started on Augmentin for home. Patient was discharged home but she continued to have increasing redness and swelling to the right hand and forearm. Patient denies any loss of consciousness with fall, no head injury. She does complain of some bruising and generalized aches and pains around her posterior ribs and lower back area. She does have pain with movement of bilateral hips. Pelvic and right hip x-ray s howed no acute fracture on initial presentation. Hand x-ray also showed no acute osseous abnormality. Patient was started on Unasyn and admitted to the [facility] floor with consult for Dr. Sow and we have added in a consult with Dr. Prince Orellana. 07/28: Patient has been seen by Dr. Sow and continued on Unasyn. Patient also seen by orthopedics with no lymph or surgical intervention. Patient's erythema and edema is improved from yesterday. Dressing is in place. Rabies, second dose, is due tomorrow which will be ordered. We'll make sure outpatient rabies vaccines are ordered prior to her discharge. Anticipate discharge in the next 24-48 hours. Patient is afebrile, heart rate 87, blood pressure 145/53, pulse ox 97% on room air. 07/29: Patient received a 3 rabies vaccine. She continues to show improvement of redness and swelling to the right hand and forearm. When Dr. Sow and orthopedics are following. Plan is to continue IV antibiotic for another day and ask for antibiotic recommendations from Dr. Sow with anticipated discharge home tomorrow. Patient has been afebrile, heart rate 80, blood pressure 155/80, pulse ox 94% on room air. Repeat WBC 9.0 Objective - Vital Signs Vital signs: Vital Signs Temp 98.4 F 07/30/19 07:09 Pulse 80 07/30/19 07:09 Resp 16 07/30/19 07:09 BP 155/80 07/30/19 07:09 Pulse Ox 94 L 07/30/19 07:09 Intake & Output 07/29/19 07/30/19 07/30/19 18:59 06:59 18:59 Other: Voiding Method Toilet Toilet # Voids 3 2 - Exam Review of Systems Constitutional: Denies chills, Denies fever, Denies poor appetite, Denies weight loss Ears, nose, mouth and throat: Denies dysphagia, Denies nasal congestion, Denies nasal discharge, Denies vertigo Cardiovascular: Denies chest pain, Denies decreased exercise tolerance, Denies dyspnea on exertion, Denies edema, Denies leg edema, Denies lightheadedness, Denies shortness of breath, Denies syncope Respiratory: Denies cough, Denies cough with sputum, Denies dyspnea, Denies excessive sputum, Denies hemoptysis, Denies home oxygen, Denies respiratory infections, Denies sleep apnea Gastrointestinal: Denies abdominal pain, Denies diarrhea, Denies loss of appetite, Denies nausea, Denies vomiting Genitourinary: Denies dysuria, Denies hematuria, Denies urgency, Denies urinary frequency Menstruation: Reports postmenopausal Musculoskeletal: Denies frequent falls, Denies gait dysfunction, Denies muscle weakness, Denies myalgias Integumentary: Reports wounds, reports edemaimproving Denies pruritus, Denies rash Neurological: Denies change in mentation, Denies change in speech, Denies gait dysfunction, Denies numbness, Denies seizures, Denies weakness Psychiatric: Denies anxiety, Denies depression Endocrine: Denies fatigue, Denies weight change Physical examination Gen: This is a 78-year-old female. Patient is resting on the edge of the bed and appears to be comfortable and in no acute distress. HEENT: Head is atraumatic, normocephalic. Pupils equal, round. Sclerae is anicte shaun. NECK: Supple. No JVD. No lymphadenopathy. No thyromegaly. LUNGS: Clear to auscultation. No wheezes or rhonchi. No intercostal retractions. HEART: Regular rate and rhythm. No murmur. ABDOMEN: Soft. Bowel sounds are present. No masses. No tenderness. BACK: No ecchymosis noted to the back region. EXTREMITIES: No pedal edema. No calf tenderness. Significant wounds to the right hand and right forearm with erythema and edema which are both improved from yesterday. Patient has minimal range of motion to the hand and wrist. Bruising noted to the left hand but full range of motion NEUROLOGICAL: Patient is awake, alert and oriented x3. Cranial nerves 2 through 12 are grossly intact. - Labs CBC & Chem 7: 07/30/19 08:50 07/28/19 09:25 Labs: Microbiology - Last 24 Hours (Table) 07/28/19 09:25 Blood Culture - Preliminary Blood No Growth after 24 hours Assessment and Plan Plan: 1. Multiple cat bites and scratches to the right hand and forearm with surrounding cellulitis with sutures in place. Patient received her first dose of rabies, tetanus status has been updated. Patient failed outpatient treatment. Consults with orthopedic surgeon and Dr. Juanjose neri. Patient is due for second dose of rabies vaccine tomorrow which will be ordered. [facility] group home has arranged outpatient vaccines on days 7 and 14. 2. Borderline hypertension, presented with hypertension. Patient will be started on lisinopril 5 mg daily. 3. Borderline diabetes mellitus type 2. Diet will be changed to consistent carb. 4. Hyperlipidemia, diet controlled. 5. COPD, stable without exacerbation. 6. History of uterine cancer status post hysterectomy. 7. History of fallopian tube tumor status post resection. 8. History of shingles, stable. 9. Remote history of tobacco use and dependence. 10. DVT prophylaxis. Heparin subcu. 11. GI prophylaxis. Pepcid. 11. COVID-19 infection not present. Discharge plan: home on Friday. Impression and plan of care have been directed as dictated by the signing physician. Alea Cervantes nurse practitioner acting as scribe for signing physician.
--- NOTE | 2019-07-30 17:32 | PN ---
PROGRESS NOTE DATE OF SERVICE: 07/30/2019 REASON FOR FOLLOWUP: Left hand cat bite cellulitis. INTERVAL HISTORY: The patient is currently afebrile, patient is breathing comfortably. Overall discomfort to the left hand area has decreased. Patient denies having any chest pain or shortness of breath, no cough, no abdominal pain, no diarrhea. PHYSICAL EXAMINATION: Blood pressure is 150/55, with a pulse of 94, temperature 97.6, she is 96% on room air. General description is an elderly female, up in the chair in no distress. RESPIRATORY SYSTEM: Unlabored breathing, clear to auscultation anteriorly. HEART: S1, S2. Regular rate and rhythm. ABDOMEN: Soft, no tenderness. Left hand overall swelling and redness slightly decreased. LABS: White count normalized. Blood culture has been negative. DIAGNOSTIC IMPRESSION AND PLAN: Patient with left hand cat bite cellulitis. Patient to continue with IV Unasyn. The patient has no clinical response, dry protective dressing to the area and hopefully finish therapy with oral antibiotics. Continue supportive care. MMODL / IJN: [id number] /
[2019-07-31] MEDS: oxyCODONE-APAP 5-325MG 1 EACH TAB PO PRN ×5 (02:22→22:47)
[2019-07-31] MEDS: AMPICILLIN-SULBACTAM 3 GM in SODIUM CHLORIDE 0.9% 100 ML IVPB SCH ×4 (06:35→21:12)
[2019-07-31] MEDS: HEPARIN SODIUM,PORCINE 5,000 UNIT/ML 1 ML VIAL SQ SCH ×2 (09:14→21:12)
[2019-07-31] MEDS: LORATADINE 10 MG TAB PO SCH (09:15)
[2019-07-31] MEDS: FAMOTIDINE 20 MG TAB PO SCH (09:15)
[2019-07-31] MEDS: LISINOPRIL 5 MG TAB PO SCH (09:15)
--- NOTE | 2019-07-31 11:26 | P.PN ---
Subjective Progress Note Date: 07/31/19 Principal diagnosis: Right upper extremity cat bite 07/31/19: Patient is a pleasant 70-year-old female seen at bedside this morning. We are following her for cat bite and wounds to the right upper extremity. She was admitted through the emergency department on 07/28/2019. She had her wounds irrigated and closed. She's been on IV antibiotics. She feels she continues to improve daily. She has no new complaints today. She is denying fever or chills. She has no new numbness or tingling. Objective - Vital Signs Vital signs: Vital Signs Temp 98.2 F 07/31/19 09:09 Pulse 83 07/31/19 09:09 Resp 18 07/31/19 09:09 BP 158/83 07/31/19 09:09 Pulse Ox 97 07/31/19 09:09 Intake & Output 07/30/19 07/31/19 07/31/19 18:59 06:59 18:59 Intake Total 120 Balance 120 Intake: Oral 120 Other: Voiding Method Toilet Toilet # Voids 2 - Exam Inspection of the right upper extremity shows bandage in place at the right hand. There is no active bleeding or drainage through the bandage. Bandage is taken down. There are [address] at dorsum of the hand. There is no diffuse erythema, swelling, bleeding or drainage. Neurovascular status is intact throughout the hand and digits including motor and sensation. There are healing scratch wounds at the dorsum of the right forearm. There is no progressive erythema, fluid collection, bleeding or drainage. Neurovascular status of the proximal right upper extremity is intact as well. 2+ radial pulses present and less than 2 second capillary refill is present. - Constitutional General appearance: Present: no acute distress - Labs CBC & Chem 7: 07/30/19 08:50 07/28/19 09:25 Labs: Microbiology - Last 24 Hours (Table) 07/28/19 09:25 Blood Culture - Preliminary Blood No Growth after 48 hours Assessment and Plan (1) Cat bite of hand Narrative/Plan: She'll continue with wound care and IV antibiotics per infectious disease. She continues to improve. I do not see any areas that will require immediate surgical intervention. We will continue to monitor her daily and she may be discharged when okay with infectious disease. Current Visit: No Status: Acute Priority: Medium Code(s): S61.459A - OPEN BITE OF UNSPECIFIED HAND, INITIAL ENCOUNTER; W55.01XA - BITTEN BY CAT, INITIAL ENCOUNTER SNOMED Code(s): 571371689 Time with Patient: Less than 30
[2019-07-31] MEDS: MUPIROCIN 2% OINT 22 GM TUBE TOPICAL SCH ×3 (12:55→21:12)
--- NOTE | 2019-07-31 15:02 | P.PN ---
Subjective Progress Note Date: 07/31/19 Principal diagnosis: Acute cat bite and scratch with severe Celexa the right hand, borderline hypertension, borderline diabetes, hyperlipidemia and COPD. This is a 78 year old female patient of Dr. Benoit with past medical history of shingles, borderline hypertension, hyperlipidemia on diet control, COPD, history of uterine cancer status post hysterectomy at age 28, generalized osteoarthritis, eczema, history of fall from fallopian tube mass removed, history of migraine headaches resolved after menopause, remote history of tobacco use and dependence. The patient states that yesterday morning she stepped out of her house and there was a feral cat outside and her own cat in the house. She ended up falling as a slip and fall and the cats attacked each other. She was in the middle of it ended up getting bitten and scratched on the right arm, forearm and hand. She initially came into [facility] emergency center yesterday and had stitches placed, tetanus status updated, received her first dose of rabies and started on Augmentin for home. Blake bennett was discharged home but she continued to have increasing redness and swelling to the right hand and forearm. Patient denies any loss of consciousness with fall, no head injury. She does complain of some bruising and generalized aches and pains around her posterior ribs and lower back area. She does have pain with movement of bilateral hips. Pelvic and right hip x-ray showed no acute fracture on initial presentation. Hand x-ray also showed no acute osseous abnormality. Patient was started on Unasyn and admitted to the [facility] floor with consult for Dr. Sow and we have added in a consult with Dr. Prince Orellana. 07/28: Patient has been seen by Dr. Sow and continued on Unasyn. Patient also seen by orthopedics with no lymph or surgical intervention. Patient's erythema and edema is improved from yesterday. Dressing is in place. Rabies, second dose, is due tomorrow which will be ordered. We'll make sure outpatient rabies vaccines are ordered prior to her discharge. Anticipate discharge in the next 24-48 hours. Patient is afebrile, heart rate 87, blood pressure 145/53, pulse ox 97% on room air. 07/29: Patient received a 3 rabies vaccine. She continues to show improvement of redness and swelling to the right hand and forearm. When Dr. Sow and orthopedics are following. Plan is to continue IV antibiotic for another day and ask for antibiotic recommendations from Dr. Sow with anticipated discharge home tomorrow. Patient has been afebrile, heart rate 80, blood pressure 155/80, pulse ox 94% on room air. Repeat WBC 9.0 07/30: Patient is doing very well so far had receive her 3 rabies vaccine she'll have another one in 7 days, remain on IV antibiotic with Unasyn at this point, still have slight drainage from right hand area was seen orthopedic today and extend her stay 1 more day tomorrow she is doing well with discharge home on Augmentin. Objective - Vital Signs Vital signs: Vital Signs Temp 98.2 F 07/31/19 13:02 Pulse 79 07/31/19 13:02 Resp 18 07/31/19 13:02 BP 151/77 07/31/19 13:02 Pulse Ox 93 L 07/31/19 13:02 Intake & Output 07/30/19 07/31/19 07/31/19 18:59 06:59 18:59 Intake Total 120 480 Balance 120 480 Intake: Oral 120 480 Other: Voiding Method Toilet Toilet Toilet # Voids 2 - Exam - Exam Review of Systems Constitutional: Denies chills, Denies fever, Denies poor appetite, Denies weight loss Ears, nose, mouth and throat: Denies dysphagia, Denies nasal congestion, Denies nasal discharge, Denies vertigo Cardiovascular: Denies chest pain, Denies decreased exercise tolerance, Denies dyspnea on exertion, Denies edema, Denies leg edema, Denies lightheadedness, Denies shortness of breath, Denies syncope Respiratory: Denies cough, Denies cough with sputum, Denies dyspnea, Denies excessive sputum, Denies hemoptysis, Denies home oxygen, Denies respiratory infections, Denies sleep apnea Gastrointestinal: Denies abdominal pain, Denies diarrhea, Denies loss of appetite, Denies nausea, Denies vomiting Genitourinary: Denies dysuria, Denies hematuria, Denies urgency, Denies urinary frequency Menstruation: Reports postmenopausal Musculoskeletal: Denies frequent falls, Denies gait dysfunction, Denies muscle weakness, Denies myalgias Integumentary: Reports wounds, reports edemaimproving Denies pruritus, Denies rash Neurological: Denies change in mentation, Denies change in speech, Denies gait dysfunction, Denies numbness, Denies seizures, Denies weakness Psychiatric: Denies anxiety, Denies depression Endocrine: Denies fatigue, Denies weight change Physical examination Gen: This is a 78-year-old female. Patient is resting on the edge of the bed and appears to be comfortable and in no acute distress. HEENT: Head is atraumatic, normocephalic. Pupils equal, round. Sclerae is anicteric. NECK: Supple. No JVD. No lymphadenopathy. No thyromegaly. LUNGS: Clear to auscultation. No wheezes or rhonchi. No intercostal retractions. HEART: Regular rate and rhythm. No murmur. ABDOMEN: Soft. Bowel sounds are present. No masses. No tenderness. BACK: No ecchymosis noted to the back region. EXTREMITIES: No pedal edema. No calf tenderness. Significant wounds to the right hand and right forearm with erythema and edema which are both improved from yesterday. Patient has minimal range of motion to the hand and wrist. Bruising noted to the left hand but full range of motion NEUROLOGICAL: Patient is awake, alert and oriented x3. Cranial nerves 2 through 12 are grossly intact. - Labs CBC & Chem 7: 07/30/19 08:50 07/28/19 09:25 Labs: Microbiology - Last 24 Hours (Table) 07/28/19 09:25 Blood Culture - Preliminary Blood No Growth after 72 hours Assessment and Plan Assessment: 1 multiple cat bite and scratch with severe cellulitis of the right upper extremity and wrist and hand area: Post rabies shot, post T dab shot, remain on Unasyn IV still seen infectious disease and orthopedic hand specialist. 2 severe cellulitis: Continue IV antibiotics for 24 more hours. 3 borderline diabetes: Continue Accu-Chek with sliding scales coverage. 4 mild COPD: Patient refuses MDI inhaler at this point. 5 history of uterine cancer post hysterectomy stable. 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 7 hypertension: Remain on lisinopril 5 mg a day blood pressure is under control. 8 Covid 19 infection is not present. Discharge planning: Most likely discharge home tomorrow.
--- NOTE | 2019-07-31 20:13 | PN ---
PROGRESS NOTE DATE OF SERVICE: 07/31/2019 REASON FOR FOLLOW UP: Left hand cat bite, cellulitis and abscess. INTERVAL HISTORY: The patient is currently afebrile. The patient is breathing comfortably, feeling better. Pain and discomfort to the left hand slightly decreased. No chest pain, shortness of breath or cough. No abdominal pain or diarrhea. PHYSICAL EXAMINATION: Blood pressure 139/78 with a pulse of 83, temperature 98.4. She is 93% on room air. General description is an elderly female up in the bed in no distress. Respiratory system: Unlabored breathing, clear to auscultation anteriorly. Heart S1, S2. Regular rate and rhythm. Abdomen soft, no tenderness. Left hand overall swelling and redness has improved. DIAGNOSTIC IMPRESSION AND PLAN: Patient with left hand cat bite cellulitis, on IV Unasyn to continue. Will re-evaluate wound tomorrow. Hopefully will be able to be put on oral antibiotics. Continue supportive care. MMODL / IJN: [id number] /
[2019-07-31 23:11] VITALS: TEMP 98.3
[2019-08-01] MEDS: AMPICILLIN-SULBACTAM 3 GM in SODIUM CHLORIDE 0.9% 100 ML IVPB SCH ×2 (03:53→10:11)
[2019-08-01] MEDS: oxyCODONE-APAP 5-325MG 1 EACH TAB PO PRN ×2 (03:56→12:09)
[2019-08-01] MEDS: LISINOPRIL 5 MG TAB PO SCH (08:16)
[2019-08-01] MEDS: LORATADINE 10 MG TAB PO SCH (08:16)
[2019-08-01] MEDS: FAMOTIDINE 20 MG TAB PO SCH (08:16)
[2019-08-01] MEDS: HEPARIN SODIUM,PORCINE 5,000 UNIT/ML 1 ML VIAL SQ SCH (08:16)
[2019-08-01 08:22] VITALS: BP 147/83; PULSE 76; RESP 18
--- NOTE | 2019-08-01 10:00 | P.DS ---
Providers Date of admission: 07/29/19 11:06 Attending physician: Elliot Mike Consults: 07/28/19 10:52 Consult Physician Routine Consulting Provider: Beryl Sow Consult Reason/Comments: cellulitis Do you want consulting provider notified?: Yes 07/28/19 11:12 Consult Physician Routine Consulting Provider: Rj Orellana Consult Reason/Comments: eval hand injury--cat bite Do you want consulting provider notified?: Yes Primary care physician: Fred Benoit Hospital Course: Acute cat bite and scratch with severe Celexa the right hand, borderline hypertension, borderline diabetes, hyperlipidemia and COPD. This is a 78 year old female patient of Dr. Benoit with past medical history of shingles, borderline hypertension, hyperlipidemia on diet control, COPD, history of uterine cancer status post hysterectomy at age 28, generalized osteoarthritis, eczema, history of fall from fallopian tube mass removed, history of migraine headaches resolved after menopause, remote history of t obacco use and dependence. The patient states that yesterday morning she stepped out of her house and there was a feral cat outside and her own cat in the house. She ended up falling as a slip and fall and the cats attacked each other. She was in the middle of it ended up getting bitten and scratched on the right arm, forearm and hand. She initially came into [facility] emergency center yesterday and had stitches placed, tetanus status updated, received her first dose of rabies and started on Augmentin for home. Patient was discharged home but she continued to have increasing redness and swelling to the right hand and forearm. Patient denies any loss of consciousness with fall, no head injury. She does complain of some bruising and generalized aches and pains around her posterior ribs and lower back area. She does have pain with movement of bilateral hips. Pelvic and right hip x-ray showed no acute fracture on initial presentation. Hand x-ray also showed no a cute osseous abnormality. Patient was started on Unasyn and admitted to the [facility] floor with consult for Dr. Sow and we have added in a consult with Dr. Prince Orellana. 07/28: Patient has been seen by Dr. Sow and continued on Unasyn. Patient also seen by orthopedics with no lymph or surgical intervention. Patient's erythema and edema is improved from yesterday. Dressing is in place. Rabies, second dose, is due tomorrow which will be ordered. We'll make sure outpatient rabies vaccines are ordered prior to her discharge. Anticipate discharge in the next 24-48 hours. Patient is afebrile, heart rate 87, blood pressure 145/53, pulse ox 97% on room air. 07/29: Patient received a 3 rabies vaccine. She continues to show improvement of redness and swelling to the right hand and forearm. When Dr. Sow and orthopedics are following. Plan is to continue IV antibiotic for another day and ask for antibiotic recommendations from Dr. Sow with anticipated discharge home tomorrow. Patient has been afebrile, heart rate 80, blood pressure 155/80, pulse ox 94% on room air. Repeat WBC 9.0 07/30: Patient is doing very well so far had receive her 3 rabies vaccine she'll have another one in 7 days, remain on IV antibiotic with Unasyn at this point, still have slight drainage from right hand area was seen orthopedic today and extend her stay 1 more day tomorrow she is doing well with discharge home on Augmentin. Objective - Vital Signs Vital signs: Vital Signs Temp 98.2 F 07/31/19 13:02 Pulse 79 07/31/19 13:02 Resp 18 07/31/19 13:02 BP 151/77 07/31/19 13:02 Pulse Ox 93 L 07/31/19 13:02 Intake & Output 07/30/19 07/31/19 07/31/19 18:59 06:59 18:59 Intake Total 120 480 Balance 120 480 Intake: Oral 120 480 Other: Voiding Method Toilet Toilet Toilet # Voids 2 - Exam - Exam Review of Systems Constitutional: Denies chills, Denies fever, Denies poor appetite, Denies weight loss Ears, nose, mouth and throat: Denies dysphagia, Denies nasal congestion, Denies nasal discharge, Denies vertigo Cardiovascular: Denies chest pain, Denies decreased exercise tolerance, Denies dyspnea on exertion, Denies edema, Denies leg edema, Denies lightheadedness, Denies shortness of breath, Denies syncope Respiratory: Denies cough, Denies cough with sputum, Denies dyspnea, Denies excessive sputum, Denies hemoptysis, Denies home oxygen, Denies respiratory infections, Denies sleep apnea Gastrointestinal: Denies abdominal pain, Denies diarrhea, Denies loss of appetite, Denies nausea, Denies vomiting Genitourinary: Denies dysuria, Denies hematuria, Denies urgency, Denies urinary frequency Menstruation: Reports postmenopausal Musculoskeletal: Denies frequent falls, Denies gait dysfunction, Denies muscle weakness, Denies myalgias Integumentary: Reports wounds, reports edemaimproving Denies pruritus, Denies rash Neurological: Denies change in mentation, Denies change in speech, Denies gait dysfunction, Denies numbness, Denies seizures, Denies weakness Psychiatric: Denies anxiety, Denies depression Endocrine: Denies fatigue, Denies weight change Physical examination Gen: This is a 78-year-old female. Patient is resting on the edge of the bed and appears to be comfortable and in no acute distress. HEENT: Head is atraumatic, normocephalic. Pupils equal, round. Sclerae is anicteric. NECK: Supple. No JVD. No lymphadenopathy. No thyromegaly. LUNGS: Clear to auscultation. No wheezes or rhonchi. No intercostal ret ractions. HEART: Regular rate and rhythm. No murmur. ABDOMEN: Soft. Bowel sounds are present. No masses. No tenderness. BACK: No ecchymosis noted to the back region. EXTREMITIES: No pedal edema. No calf tenderness. Significant wounds to the right hand and right forearm with erythema and edema which are both improved from yesterday. Patient has minimal range of motion to the hand and wrist. Br uising noted to the left hand but full range of motion NEUROLOGICAL: Patient is awake, alert and oriented x3. Cranial nerves 2 through 12 are grossly intact. Assessment and Plan Assessment: 1 multiple cat bite and scratch with severe cellulitis of the right upper extremity and wrist and hand area: Post rabies shot, post T dab shot, remain on Unasyn IV still seen infectious disease and orthopedic hand specialist. 2 severe cellulitis: Continue IV antibiotics for 24 more hours. 3 borderline diabetes: Continue Accu-Chek with sliding scales coverage. 4 mild COPD: Patient refuses MDI inhaler at this point. 5 history of uterine cancer post hysterectomy stable. 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 7 hypertension: Remain on lisinopril 5 mg a day blood pressure is under control. 8 Covid 19 infection is not present. 08/01/2019: Patient is doing much better her hand swelling improved significantly no more drainage infectious disease and orthopedics are agreeable to it patient goes home on oral Augmentin and topical care. Patient still have mild edema Will add Dyazide daily for total of 1 week. Also patient continued to have mild wheezes most likely from mild water retention and history of COPD which she is agreeable to stay on Ventolin HFA 2 puffs up to 4 times a day as needed. Patient is very stable to be discharged home today to follow-up with her primary care and will have home care as well. Patient Condition at Discharge: Fair Plan - Discharge Summary Discharge Rx Participant: No New Discharge Prescriptions: New Mupirocin 2% Oint [Bactroban 2% Oint] 1 applic TOPICAL TID #60 gram Famotidine [Pepcid] 20 mg PO DAILY #30 tab oxyCODONE-APAP 5-325MG [Percocet 5-325 mg] 1 each PO Q4HR PRN #12 tab PRN Reason: Severe Pain Acetaminophen Tab [Tylenol] 650 mg PO Q6HR PRN tab PRN Reason: Mild Pain Or Fever > 100.5 Lisinopril [Zestril] 5 mg PO DAILY #30 tab Triamterene-Hctz 37.5-25Mg [Dyazide 37.5-25 Capsule] 1 cap PO DAILY #30 capsule Albuterol Sulfate [Ventolin HFA] 2 puff INHALATION Q6H PRN #1 inhaler PRN Reason: Shortness Of Breath Continue Amoxicillin/Potassium Clav [Augmentin 875-125 Tablet] 1 tab PO Q12HR #20 tab Cetirizine HCl 10 mg PO DAILY Aspirin EC [Ecotrin] 325 mg PO DAILY PRN PRN Reason: Pain Discharge Medication List Amoxicillin/Potassium Clav [Augmentin 875-125 Tablet] 1 tab PO Q12HR #20 tab 07/27/19 [Rx] Aspirin EC [Ecotrin] 325 mg PO DAILY PRN 07/28/19 [History] Cetirizine HCl 10 mg PO DAILY 07/28/19 [History] Acetaminophen Tab [Tylenol] 650 mg PO Q6HR PRN tab 08/01/19 [Rx] Albuterol Sulfate [Ventolin HFA] 2 puff INHALATION Q6H PRN #1 inhaler 08/01/19 [Rx] Famotidine [Pepcid] 20 mg PO DAILY #30 tab 08/01/19 [Rx] Lisinopril [Zestril] 5 mg PO DAILY #30 tab 08/01/19 [Rx] Mupirocin 2% Oint [Bactroban 2% Oint] 1 applic TOPICAL TID #60 gram 08/01/19 [Rx] Triamterene-Hctz 37.5-25Mg [Dyazide 37.5-25 Capsule] 1 cap PO DAILY #30 capsule 08/01/19 [Rx] oxyCODONE-APAP 5-325MG [Percocet 5-325 mg] 1 each PO Q4HR PRN #12 tab 08/01/19 [Rx] Follow up Appointment(s)/Referral(s): [facility], [NON-STAFF] - As Needed Fred Benoit MD [Primary Care Provider] - 1-2 days Eran Holguin MD [STAFF PHYSICIAN] - 1 Week (Patient may follow-up with Dr. Holguin at [facility] in 1 week following discharge. ) Activity/Diet/Wound Care/Special Instructions: pt to go to [facility] in the hospital for her rabies vaccine on 08/03/19 at 9am, and 08/09/19 at for her last infusion they will tell you at time at your appt on the . Discharge Disposition: HOME WITH HOME HEALTH SERVICES
[2019-08-01] MEDS: MUPIROCIN 2% OINT 22 GM TUBE TOPICAL SCH (10:11)
--- NOTE | 2019-08-01 13:23 | PN ---
PROGRESS NOTE DATE OF SERVICE: 08/01/2019 REASON FOR FOLLOWUP: Left hand cat bite cellulitis. INTERVAL HISTORY: The patient is currently afebrile. The patient is breathing comfortably. Denies having chest pain. No shortness of breath or cough. Left hand overall pain and swelling are improved. No drainage. PHYSICAL EXAMINATION: Blood pressure 147/83 with a pulse of 76, temperature 98.3. She is 94% on room air. General description: The patient is an elderly female up in the bed in no distress. Respiratory system: Unlabored breathing. Clear to auscultation anteriorly. Heart S1, S2. Regular rate and rhythm. Abdomen soft. No tenderness. Left hand overall swelling and redness has improved. LABS: Blood culture negative. No CBC was done today. White count normal as of yesterday. DIAGNOSTIC IMPRESSION AND PLAN: Patient with left hand cat bite cellulitis in this patient who seemed to have shown overall clinical improvement on Unasyn. She will finish therapy with oral Augmentin. She is about 10 day course. She is advised to follow up in the office in about a week. All questions and concerns were answered. Also advised if any worsening swelling, redness on oral antibiotics to let us know right away. MMODL / IJN: [id number] /
== END 2019-08-01 14:00 | disposition home health service (06) | DRG 603 ==
LOC: EC 08:44 → 4SSUR 10:51 → OBSVTOIN 07-29 11:06 → 6PED 07-30 13:50
PROVIDERS: ADMIT Internal Medicine Geriatric Medicine; ATTEND Internal Medicine Geriatric Medicine
DX: L03.113 Cellulitis of right upper limb (principal); M15.9 Polyosteoarthritis, unspecified; J44.9 Chronic obstructive pulmonary disease, unspecified; S50.811A Abrasion of right forearm, initial encounter; S61.451A Open bite of right hand, initial encounter; W01.0XXA Fall on same level from slipping, tripping and stumbling without subsequent striking against object, initial encounter; W55.01XA Bitten by cat, initial encounter; E11.9 Type 2 diabetes mellitus without complications; E78.5 Hyperlipidemia, unspecified; I10 Essential (primary) hypertension; Z79.82 Long term (current) use of aspirin; Z79.899 Other long term (current) drug therapy; Z82.3 Family history of stroke; Z85.42 Personal history of malignant neoplasm of other parts of uterus; Z86.19 Personal history of other infectious and parasitic diseases; Z87.442 Personal history of urinary calculi; Z87.891 Personal history of nicotine dependence; Z90.710 Acquired absence of both cervix and uterus; Z11.59 Encounter for screening for other viral diseases; L30.9 Dermatitis, unspecified; Z60.2 Problems related to living alone; L40.9 Psoriasis, unspecified; G43.909 Migraine, unspecified, not intractable, without status migrainosus; Z90.49 Acquired absence of other specified parts of digestive tract
CPT/HCPCS: 36415; 80048; 83605; 85025; 85027; 85652; 86140; 87040; 87635; 90675; 93005; 96365; 99284

== ENCOUNTER 2019-08-11 16:44 | Inpatient (IN) | payer MEDICARE ==
[2019-08-11 17:13] LABS: Basophils # (A) 0.1 k/uL (0-0.2); Basophils % (A) 1 %; Eosinophils # (A) 0.3 k/uL (0-0.7); Eosinophils % (A) 3 %; HCT 44.3 % (34.0-46.0); HGB 14.3 gm/dL (11.4-16.0); Lymphocytes # (A) 2.7 k/uL (1.0-4.8); Lymphocytes % (A) 30 %; MCH 30.8 pg (25.0-35.0); MCHC 32.3 g/dL (31.0-37.0); MCV 95.5 fL (80.0-100.0); Mean Platelet Volume 7.9; Monocytes # (A) 0.5 k/uL (0-1.0); Monocytes % (A) 6 %; Neutrophils # (A) 5.2 k/uL (1.3-7.7); Neutrophils % (A) 57 %; Platelet Count 297 k/uL (150-450); RBC 4.64 m/uL (3.80-5.40); RDW 13.5 % (11.5-15.5); WBC 9.1 k/uL (3.8-10.6)
[2019-08-11 17:32] LABS: Albumin 4.5 g/dL (3.5-5.0); Calcium 9.7 mg/dL (8.4-10.2); Potassium 4.7 mmol/L (3.5-5.1); Total Bilirubin 0.5 mg/dL (0.2-1.3); Total Protein 9.1 g/dL (6.3-8.2)
[2019-08-11 17:40] LABS: Partial Thromboplastin Time 23.8 sec (22.0-30.0); Prothrombin Time 10.3 sec (9.0-12.0)
--- NOTE | 2019-08-11 18:05 | CT ---
EXAMINATION TYPE: CT abdomen pelvis wo con DATE OF EXAM: 08/11/2019 HISTORY: Kidney failure, bilateral flank pain CT DLP: 788.5 mGycm. Automated Exposure Control for Dose Reduction was Utilized. TECHNIQUE: CT scan of the abdomen and pelvis is performed without oral or IV contrast. COMPARISON: NONE FINDINGS: Within the limitations of a non-contrast study, the following observations are made. LUNG BASES: No significant abnormality is appreciated. LIVER/GB: Liver is diffusely low dense with lobulated peripheral nodular contour and slightly small i n size. Findings consistent with underlying cirrhosis. No surrounding ascites. PANCREAS: No significant abnormality is seen. SPLEEN: No significant abnormality is seen. ADRENALS: No significant abnormality is seen. KIDNEYS: Cortical thinning both kidneys. No renal stones noted bilaterally. Simple appearing exophyti c 3.5 cm thin-walled cyst posteriorly lower pole of the right kidney. BOWEL: No suspicious small or large bowel dilatation. Diverticula in the sigmoid colon without CT agustín dence for acute diverticulitis. GENITAL ORGANS: Uterus surgically absent or markedly atrophic. A few scattered pelvic phleboliths. LYMPH NODES: No greater than 1cm abdominal or pelvic lymph nodes are appreciated. OSSEOUS STRUCTURES: Hemangioma involving the L3 vertebra. Age indeterminate probable subacute mild co mpression fracture involving the superior L1 endplate as there is some lucency and sclerosis. No post erior retropulsion. Mild to moderate narrowing and moderate acetabular spurring of both hips. OTHER: No significant additional abnormality is seen. IMPRESSION: 1. No renal stones or hydronephrosis is seen bilaterally. 2. Hepatic cirrhosis is noted without splenomegaly or surrounding ascites. 3. Suspected mild subacute compression type fracture deformity through the superior L1 vertebra, kolby elate clinically.
[2019-08-11] MEDS ORDERED: SODIUM CHLORIDE 0.9% 1,000 ML IV ONE (18:07)
[2019-08-11] MEDS ORDERED: NALOXONE 0.4 MG/ML 1 ML VIAL IV PRN (18:36)
--- NOTE | 2019-08-11 18:36 | ED ---
General Adult HPI - General Chief complaint: Recheck/Abnormal Lab/Rx Stated complaint: kidney failure Time Seen by Provider: 08/11/19 16:50 Source: patient Mode of arrival: wheelchair Limitations: no limitations - History of Present Illness Initial comments: The patient is a 78-year-old female who presents to the emergency department from Dr. Burton's office. Today was her follow-up visit for a hospitalization that she had 3 weeks ago. The patient was attacked by a feral cat and sustained a laceration to her right hand. She then spent several days hospitalized with IV antibiotics. Was discharged home on Augmentin. States that she took 2 doses of the medication however Brugada rash and had to stop it. Reports that her cellulitis has improved. She has felt mildly weak with lack of appetite. Today at her doctor's visit Dr. Burton did perform lab studies and found the patient had acute kidney injury. She did direct her into the emergency department for evaluation. Patient received rabies injections however denies any other medication changes since her last admission. Admits to decrease frequency of urination. Denies dysuria or hematuria. Also reports to bilateral flank pain since the attack. Denies diarrhea, constipation, melenic stools or hematochezia. No lower extremity edema. There are no alleviating, Perceptin or modifying factors - Related Data Home Medications Medication Instructions Recorded Confirmed Aspirin EC [Ecotrin] 325 mg PO DAILY PRN 07/28/19 08/12/19 Cetirizine HCl 10 mg PO DAILY 07/28/19 08/12/19 Previous Rx's Medication Instructions Recorded Acetaminophen Tab [Tylenol] 650 mg PO Q6HR PRN tab 08/01/19 Albuterol Sulfate [Ventolin HFA] 2 puff INHALATION Q6H PRN #1 08/01/19 inhaler Famotidine [Pepcid] 20 mg PO DAILY #30 tab 08/01/19 Mupirocin 2% Oint [Bactroban 2% 1 applic TOPICAL TID #60 gram 08/01/19 Oint] oxyCODONE-APAP 5-325MG [Percocet 1 each PO Q4HR PRN #12 tab 08/01/19 5-325 mg] amLODIPine [Norvasc] 5 mg PO DAILY #30 tab 08/14/19 Allergies Allergy/AdvReac Type Severity Reaction Status Date / Time amoxicillin [From Augmentin] Allergy Rash/Hives Verified 08/12/19 08:15 clavulanic acid Allergy Rash/Hives Verified 08/12/19 08:15 [From Augmentin] codeine Allergy Confusion Verified 08/11/19 16:49 Review of Systems ROS Statement: Those systems with pertinent positive or pertinent negative responses have been documented in the HPI. ROS Other: All systems not noted in ROS Statement are negative. 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 Mcfarland in at [facility] in [place], kidney stones Past Anesthesia/Blood Transfusion Reactions: No Reported Reaction Past Psychological History: No Psychological Hx Reported Smoking Status: Former smoker Past Alcohol Use History: Rare Past Drug Use History: None Reported - Past Family History Mother Family Medical History: Cancer Additional Family Medical History / Comment(s): Mother at age 85 from a brain tumor. Father Family Medical History: CVA/TIA Additional Family Medical History / Comment(s): Father at age 75 from a CVA. Sister(s) Additional Family Medical History / Comment(s): Patient has 1 sister but she has no contact with her as her sister stole her identity. Brother(s) Additional Family Medical History / Comment(s): Patient does not have any brothers. Patient has 4 children, one at age 7 weeks, other children with no major medical problems. Patient is also adopted 1 child. General Exam Limitations: no limitations General appearance: alert, in no apparent distress Head exam: Present: atraumatic, normocephalic, normal inspection Eye exam: Present: normal appearance, PERRL, EOMI. Absent: scleral icterus, conjunctival injection, periorbital swelling ENT exam: Present: normal exam, mucous membranes moist Neck exam: Present: normal inspection. Absent: tenderness, meningismus, lymphadenopathy Respiratory exam: Present: normal lung sounds bilaterally. Absent: respiratory distress, wheezes, rales, rhonchi, stridor Cardiovascular Exam: Present: regular rate, normal rhythm, normal heart sounds. Absent: systolic murmur, diastolic murmur, rubs, gallop, clicks GI/Abdominal exam: Present: soft, normal bowel sounds. Absent: distended, tend erness, guarding, rebound, rigid Extremities exam: Present: normal inspection, full ROM, normal capillary refill. Absent: tenderness, pedal edema, joint swelling, calf tenderness Back exam: Present: normal inspection Neurological exam: Present: alert, oriented X3, CN II-XII intact Psychiatric exam: Present: normal affect, normal mood Skin exam: Present: warm, dry, intact, normal color, abrasion (right dorsal hand - healing appropriately without signs of active infection). Absent: rash Course Vital Signs 08/11/19 08/11/19 16:47 19:48 Temperature 98.2 F 98 F Pulse Rate 101 H 79 Respiratory 18 18 Rate Blood Pressure 133/82 130/78 O2 Sat by Pulse 96 97 Oximetry Medical Decision Making - Medical Decision Making Upon arrival the patient was placed into room 3. A thorough history and physical exam is performed. I did repeat laboratory studies. Also recommended a CT of the patient's abdomen and pelvis without contrast. Laboratory studies are remarkable for a creatinine of 3.1. The patient was given a liter bolus of normal saline followed by [address] of the patient's abdomen and pelvis demonstrates no renal stones or hydronephrosis. Hepatic cirrhosis without splenomegaly. Suspected mild subacute compression fracture through the superior L1 vertebrae. Patient has no lower extremity weakness. I did order a bladder scan as the patient has been unable to provide a urine sample. I did discuss the case with Dr. Mike who accepted admission. He is requesting ultrasound of the kidneys. I will place Dr. Luciano on consult. Patient remained in stable condition and was transported to floor. I will hold all the patient's medications which are nephrotoxic - Lab Data Result diagrams: 08/12/19 06:01 08/14/19 09:24 Lab Results 08/11/19 08/11/19 08/11/19 Range/Units 17:01 17:01 17:01 WBC 9.1 (3.8-10.6) k/uL RBC 4.64 (3.80-5.40) m/uL Hgb 14.3 (11.4-16.0) gm/dL Hct 44.3 (34.0-46.0) % MCV 95.5 (80.0-100.0) fL MCH 30.8 (25.0-35.0) pg MCHC 32.3 (31.0-37.0) g/dL RDW 13.5 (11.5-15.5) % Plt Count 297 (150-450) k/uL Neutrophils % 57 % Lymphocytes % 30 % Monocytes % 6 % Eosinophils % 3 % Basophils % 1 % Neutrophils # 5.2 (1.3-7.7) k/uL Lymphocytes # 2.7 (1.0-4.8) k/uL Monocytes # 0.5 (0-1.0) k/uL Eosinophils # 0.3 (0-0.7) k/uL Basophils # 0.1 (0-0.2) k/uL PT 10.3 (9.0-12.0) sec INR 1.0 (<1.2) APTT 23.8 (22.0-30.0) sec Sodium 134 L (137-145) mmol/L Potassium 4.7 (3.5-5.1) mmol/L Chloride 104 (98-107) mmol/L Carbon Dioxide 20 L (22-30) mmol/L Anion Gap 10 mmol/L BUN 49 H (7-17) mg/dL Creatinine 3.11 H (0.52-1.04) mg/dL Est GFR (CKD-EPI)AfAm 16 (>60 ml/min/1.73 sqM) Est GFR (CKD-EPI)NonAf 14 (>60 ml/min/1.73 sqM) Glucose 124 H (74-99) mg/dL Plasma Lactic Acid Caleb (0.7-2.0) mmol/L Calcium 9.7 (8.4-10.2) mg/dL Total Bilirubin 0.5 (0.2-1.3) mg/dL AST 43 H (14-36) U/L ALT 16 (4-34) U/L Alkaline Phosphatase 123 (38-126) U/L Creatine Kinase (30-135) U/L Total Protein 9.1 H (6.3-8.2) g/dL Albumin 4.5 (3.5-5.0) g/dL Lipase 378 H (23-300) U/L 08/11/19 08/11/19 Range/Units 17:01 17:01 WBC (3.8-10.6) k/uL RBC (3.80-5.40) m/uL Hgb (11.4-16.0) gm/dL Hct (34.0-46.0) % MCV (80.0-100.0) fL MCH (25.0-35.0) pg MCHC (31.0-37.0) g/dL RDW (11.5-15.5) % Plt Count (150-450) k/uL Neutrophils % % Lymphocytes % % Monocytes % % Eosinophils % % Basophils % % Neutrophils # (1.3-7.7) k/uL Lymphocytes # (1.0-4.8) k/uL Monocytes # (0-1.0) k/uL Eosinophils # (0-0.7) k/uL Basophils # (0-0.2) k/uL PT (9.0-12.0) sec INR (<1.2) APTT (22.0-30.0) sec Sodium (137-145) mmol/L Potassium (3.5-5.1) mmol/L Chloride (98-107) mmol/L Carbon Dioxide (22-30) mmol/L Anion Gap mmol/L BUN (7-17) mg/dL Creatinine (0.52-1.04) mg/dL Est GFR (CKD-EPI)AfAm (>60 ml/min/1.73 sqM) Est GFR (CKD-EPI)NonAf (>60 ml/min/1.73 sqM) Glucose (74-99) mg/dL Plasma Lactic Acid Caleb 1.8 (0.7-2.0) mmol/L Calcium (8.4-10.2) mg/dL Total Bilirubin (0.2-1.3) mg/dL AST (14-36) U/L ALT (4-34) U/L Alkaline Phosphatase (38-126) U/L Creatine Kinase 50 (30-135) U/L Total Protein (6.3-8.2) g/dL Albumin (3.5-5.0) g/dL Lipase (23-300) U/L Disposition Clinical Impression: RONN (acute kidney injury) Disposition: ADMITTED IP TO THIS [facility] Condition: Good Is patient prescribed a controlled substance at d/c from ED?: No Decision to Admit Reason: Admit from EC Decision Date: 08/11/19 Decision Time: 18:36
--- NOTE | 2019-08-11 20:08 | US ---
EXAMINATION TYPE: US kidneys/renal and bladder DATE OF EXAM: 08/11/2019 COMPARISON: CT from earlier today. CLINICAL HISTORY: RONN. RONN per order. Hx HTN, kidney stones, right kidney surgery for stone, appendec lina. EXAM MEASUREMENTS: Right Kidney: 10.4 x 5.9 x 4.8 cm Left Kidney: 10.1 x 4.6 x 4.4 cm Right Kidney: Cortical thinning. Lobulated contour. Appears to have an increased echogenicity. Hypoec hoic area seen inferiorly measurin.0 x 3.1 x 2.9 cm. Left Kidney: Cortical thinning. Slightly lobulated contour. Appears to have an increased echogenicity . Hypoechoic area with complex component seen inferiorly measurin.9 x 3.3 x 2.0 cm. Bladder: Limited-not fully distended. Appears to be anechoic. Bilateral Jets seen: Yes When scanning right kidney adjacent liver is markedly heterogeneously hyperechoic. Finding consistent with suspected cirrhosis. Marked cortical thinning and increased cortical echogenicity both kidneys with scattered simple-appearing thin-walled cysts. No obvious hydronephrosis. Suboptimal study due to large body habitus. Poorly distended bladder is suboptimally evaluated. IMPRESSION: Suboptimal study. Evidence of chronic medical renal disease. No gross hydronephrosis bila terally. Findings correlate with same day CT.
--- NOTE | 2019-08-11 22:55 | P.HPIM ---
History of Present Illness H&P Date: 08/11/19 Chief Complaint: Acute kidney injury, cat bite in the right upper extremity, hypertension an 78-year-old female one of Dr. Benoit patient who was hospitalized on July 27 until July 27 14,024 right upper extremity acute cat bite and scratch with severe cellulitis. Patient was on Unasyn and had rabies series of shots. Left the hospital doing well with creatinine 0.9 at the time. Patient apparently developed to have significant side effect to Augmentin which was sent home on and contacted Sayed stop the antibiotic according to her she described significant reaction with rash all over with slight itching and irritation. She was in to see her primary care physician today why she wasn't feeling and had severe abnormal creatinine with her blood test running over 3.0 patient is making less urine output slight difficulty with urination as well. Patient was referred to demurs department for acute kidney injury severe dehydration and possible obstructive uropathy. Ended up having CT of the abdomen and pelvis with findings suspected for mild subacute compression time of fracture of the L1 vertebrae with no renal stone or hydronephrosis but had mild hepatic cirrhosis on the finding with a CAT scan. Ultrasound of the kidney showed suboptimal study with evidence of chronic medical renal disease with no gross hydronephrosis bilaterally. She was started on hydration will be admitted to the hospital consult nephrology watch her urine output. Mild incidental finding of elevated lipase with no sign or symptom of pancreatitis. Review of Systems CONSTITUTIONAL: Well-developed no acute respiratory distress. EYES: No icterus sclerae, no conjunctivitis. EARS, NOSE, MOUTH, THROAT, and FACE: No sore throat, lymphadenopathy, carotid bruits or deformity. RESPIRATORY: No SOB cough or wheezes. CARDIOVASCULAR: No CP, Palpitation, PND, Orthopnea, or angina. GASTROINTESTINAL: No Abd pain, Nausea or vomiting, no Diarrhea or constipation, No GI Bleed, no distention or masses. GENITOURINARY: Acute kidney injury with kidney failure. INTEGUMENT/BREAST: Pain and discomfort in the right upper extremity from cat scratch encephalitis but did improve. HEMATOLOGIC/LYMPHATIC: Negative for bleed or purpura. MUSCULOSKELTAL: Negative for Myalgia or arthralgia. NEURLOGICAL: No LOC, Sz or syncope, blurred vision dizziness or abnormality.. BEHAVIORAL/PSYCH: Negative. ENDOCRINE: Negative. 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 Mcfarland in at [facility] in [place], kidney stones Past Anesthesia/Blood Transfusion Reactions: No Reported Reaction Past Psychological History: No Psychological Hx Reported Smoking Status: Former smoker Past Alcohol Use History: Rare Past Drug Use History: None Reported - Past Family History Mother Family Medical History: Cancer Additional Family Medical History / Comment(s): Mother at age 85 from a brain tumor. Father Family Medical History: CVA/TIA Additional Family Medical History / Comment(s): Father at age 75 from a CVA. Sister(s) Additional Family Medical History / Comment(s): Patient has 1 sister but she has no contact with her as her sister stole her identity. Brother(s) Additional Family Medical History / Comment(s): Patient does not have any brothers. Patient has 4 children, one at age 7 weeks, other children with no major medical problems. Patient is also adopted 1 child. Medications and Allergies Home Medications Medication Instructions Recorded Confirmed Type Amoxicillin/Potassium Clav 1 tab PO Q12HR #20 tab 07/27/19 08/03/19 Rx [Augmentin 875-125 Tablet] Aspirin EC [Ecotrin] 325 mg PO DAILY PRN 07/28/19 08/03/19 History Cetirizine HCl 10 mg PO DAILY 07/28/19 08/03/19 History Acetaminophen Tab [Tylenol] 650 mg PO Q6HR PRN tab 08/01/19 08/03/19 Rx Albuterol Sulfate [Ventolin HFA] 2 puff INHALATION Q6H PRN #1 08/01/19 08/03/19 Rx inhaler Famotidine [Pepcid] 20 mg PO DAILY #30 tab 08/01/19 08/03/19 Rx Lisinopril [Zestril] 5 mg PO DAILY #30 tab 08/01/19 08/03/19 Rx Mupirocin 2% Oint [Bactroban 2% 1 applic TOPICAL TID #60 gram 05/24/20 05/26/20 Rx Oint] Triamterene-Hctz 37.5-25Mg 1 cap PO DAILY #30 capsule 08/01/19 08/03/19 Rx [Dyazide 37.5-25 Capsule] oxyCODONE-APAP 5-325MG [Percocet 1 each PO Q4HR PRN #12 tab 08/01/19 08/03/19 Rx 5-325 mg] Allergies Allergy/AdvReac Type Severity Reaction Status Date / Time codeine Allergy Confusion Verified 08/11/19 16:49 Physical Exam Vitals: Vital Signs Temp Pulse Resp BP Pulse Ox 08/11/19 19:48 98 F 79 18 130/78 97 08/11/19 16:47 98.2 F 101 H 18 133/82 96 Intake and Output 08/11/19 08/11/19 08/11/19 06:59 14:59 22:59 Other: Weight 82.1 kg General Appearance: Alert, cooperative, no distress, appears stated age. Neck HEENT: Supple, no lymphadenopathy, no thyroid enlargement, no carotid bruits. Lungs: Clear to auscultation without crackles or wheezes no rhonchi, no deformity. Chest Wall: Chest wall normal expansion with deep inspiration no tenderness and no deformity was found on exam, no costochondral pain or discomfort. Heart: Regular rate and rhythm, S1, S2 normal, no murmur, rub or gallop. Back: Symmetric, no curvature, ROM normal, no CVA tenderness. Abdomen: Soft, non-tender, bowel sounds active all four quadrants, Extremities right upper extremity the cats scratch and bite area has healed with no drainage still have slight irritation and discomfort with a scar tissue from her last hospitalization and suture. Pulses: 2+ and symmetric. Skin: Skin color, texture, tugor normal, no rashes or lesions. Neurologic: Alert oriented x3 cranial nerves II through XII intact, no motor deficit, no abnormal balance or gait. Results CBC & Chem 7: 08/11/19 17:01 08/11/19 17:01 Labs: Abnormal Lab Results - Last 24 Hours (Table) 08/11/19 Range/Units 17:01 Sodium 134 L (137-145) mmol/L Carbon Dioxide 20 L (22-30) mmol/L BUN 49 H (7-17) mg/dL Creatinine 3.11 H (0.52-1.04) mg/dL Glucose 124 H (74-99) mg/dL AST 43 H (14-36) U/L Total Protein 9.1 H (6.3-8.2) g/dL Lipase 378 H (23-300) U/L Thrombosis Risk Factor Assmnt - DVT/VTE Prophylaxis DVT/VTE Prophylaxis: Pharmacologic Prophylaxis ordered, Mechanical Prophylaxis ordered Assessment and Plan Assessment: 1 acute kidney failure: With acute kidney injury most likely from ATN no sign of obstructive uropathy or kidney stone at this point, this could be reaction to either antibiotics, dehydration or reaction to the rabies shot. We'll continue hydration consult nephrology recheck BUN/creatinine 24 hours. 2 severe cellulitis and cat scratch and bite of the right upper extremity: Patient had finished her course of antibiotic despite the reaction to the penicillin toward the end she finished the seventh course. 3 COPD: Still on Ventolin HFA as needed refuses steroid inhaler at this point. 4 hypertension: Has been on lisinopril 5 mg a day. 5 borderline diabetes: Continue Accu-Chek with sliding scales coverage. 6 elevated lipase with no sign of pancreatitis repeat lipase and amylase in 24 hours at this point continue conservative management. 7 history of uterine cancer post hysterectomy. 8 DVT prophylaxis: Patient will be on heparin subcutaneous. 9 GI prophylaxis: Patient be on Pepcid 20 mg daily. CODE STATUS: Full code. Admit patient to inpatient status for more than 2 nights.
[2019-08-12] MEDS: SODIUM CHLORIDE 0.9% 1,000 ML IV SCH ×4 (01:06→22:12)
[2019-08-12 06:29] LABS: Basophils # (A) 0.1 k/uL (0-0.2); Basophils % (A) 1 %; Eosinophils # (A) 0.4 k/uL (0-0.7); Eosinophils % (A) 7 %; HCT 39.6 % (34.0-46.0); HGB 12.6 gm/dL (11.4-16.0); Lymphocytes # (A) 1.8 k/uL (1.0-4.8); Lymphocytes % (A) 30 %; MCHC 31.9 g/dL (31.0-37.0); MCV 97.1 fL (80.0-100.0); Mean Platelet Volume 7.5; Monocytes # (A) 0.4 k/uL (0-1.0); Monocytes % (A) 6 %; Neutrophils # (A) 3.2 k/uL (1.3-7.7); Neutrophils % (A) 53 %; Platelet Count 194 k/uL (150-450); RBC 4.08 m/uL (3.80-5.40); RDW 13.6 % (11.5-15.5); WBC 6.1 k/uL (3.8-10.6)
[2019-08-12 06:40] LABS: Albumin 3.4 g/dL (3.5-5.0); Calcium 8.4 mg/dL (8.4-10.2); Potassium 4.5 mmol/L (3.5-5.1); Total Bilirubin 0.5 mg/dL (0.2-1.3); Total Protein 7.1 g/dL (6.3-8.2)
[2019-08-12] MEDS ORDERED: ALBUTEROL HFA INHALER INHALATION PRN (07:59)
[2019-08-12] MEDS ORDERED: ASPIRIN 325 MG TAB PO PRN (07:59)
[2019-08-12] MEDS: LORATADINE 10 MG TAB PO SCH (09:02)
[2019-08-12] MEDS: FAMOTIDINE 20 MG TAB PO SCH (09:02)
--- NOTE | 2019-08-12 12:58 | P.PN ---
Subjective Progress Note Date: 08/12/19 78-year-old female one of Dr. Beniot (changed to Dr. Burton as she had not followed with him in 3 years) patient who was hospitalized on July 27 until July 27 14,024 right upper extremity acute cat bite and scratch with severe cellulitis. Patient was on Unasyn and had rabies series of shots. Left the hospital doing well with creatinine 0.9 at the time. Patient apparently developed to have significant side effect to Augmentin which was sent home on and contacted Sayed stop the antibiotic according to her she described significant reaction with rash all over with slight itching and irritation. She was in to see her primary care physician today why she wasn't feeling and had severe abnormal creatinine with her blood test running over 3.0 patient is making less urine output slight difficulty with urination as well. Patient was referred to demurs department for acute kidney injury severe dehydration and possible obstructive uropathy. Ended up having CT of the abdomen and pelvis with findings suspected for mild subacute compression time of fracture of the L1 vertebrae with no renal stone or hydronephrosis but had mild hepatic cirrhosis on the finding with a CAT scan. Ultrasound of the kidney showed suboptimal study with evidence of chronic medical renal disease with no gross hydronephrosis bilaterally. She was started on hydration will be admitted to the hospital consult nephrology watch her urine output. Mild incidental finding of elevated lipase with no sign or symptom of pancreatitis. 08/11: Repeat blood work this morning reveals a normal CBC, BUN 14 creatinine 2.3 to, potassium 4.5, chloride 111, CO2 21. Liver function tests are normal. Patient states she received her last rabies vaccine on Friday. Patient is currently on IV fluids at 125 mL per hour. Nephrology is on consult. Coronavirus PCR not detected. Patient has been afebrile, heart rate 83, blood pressure 139/65 and pulse ox 98% on room air. Objective - Vital Signs Vital signs: Vital Signs Temp 97.3 F L 08/12/19 07:11 Pulse 83 08/12/19 07:11 Resp 16 08/12/19 07:11 BP 139/65 08/12/19 07:11 Pulse Ox 98 08/12/19 07:11 Intake & Output 08/11/19 08/12/19 08/12/19 18:59 06:59 18:59 Intake Total 20 Balance 20 Weight 82.1 kg 82.1 kg Intake: Oral 20 Other: Voiding Method Toilet # Voids 3 - Exam Review of Systems CONSTITUTIONAL: Well-developed no acute respiratory distress. Denies fevers, denies chills. EYES: No icterus sclerae, no conjunctivitis. EARS, NOSE, MOUTH, THROAT, and FACE: No sore throat, lymphadenopathy, carotid bruits or deformity. RESPIRATORY: No SOB cough or wheezes. CARDIOVASCULAR: No CP, Palpitation, PND, Orthopnea, or angina. GASTROINTESTINAL: No Abd pain, Nausea or vomiting, no Diarrhea or constipation, No GI Bleed, no distention or masses. GENITOURINARY: Acute kidney injury with kidney failure. INTEGUMENT/BREAST: Pain and discomfort in the right upper extremity from cat scr atch encephalitis but did improve. HEMATOLOGIC/LYMPHATIC: Negative for bleed or purpura. MUSCULOSKELTAL: Negative for Myalgia or arthralgia. NEURLOGICAL: No LOC, Sz or syncope, blurred vision dizziness or abnormality.. BEHAVIORAL/PSYCH: Negative. ENDOCRINE: Negative. Physical Examination General Appearance: Alert, cooperative, no distress, appears stated age. P atient appears to be in no acute distress. Neck HEENT: Supple, no lymphadenopathy, no thyroid enlargement, no carotid bruits. Lungs: Clear to auscultation without crackles or wheezes no rhonchi, no de formity. Chest Wall: Chest wall normal expansion with deep inspiration no tenderness and no deformity was found on exam, no costochondral pain or discomfort. Heart: Regular rate and rhythm, S1, S2 normal, no murmur, rub or gallop. Back: Symmetric, no curvature, ROM normal, no CVA tenderness. Abdomen: Soft, non-tender, bowel sounds active all four quadrants, Extremities right upper extremity the cats scratch and bite area has healed with no drainage still have slight irritation and discomfort with a scar tissue from her last hospitalization and suture. Pulses: 2+ and symmetric. Skin: Skin color, texture, tugor normal, no rashes or lesions. Neurologic: Alert oriented x3 cranial nerves II through XII intact, no motor deficit, no abnormal balance or gait. - Labs CBC & Chem 7: 08/12/19 06:01 08/12/19 06:01 Labs: Abnormal Lab Results - Last 24 Hours (Table) 08/11/19 08/12/19 Range/Units 17:01 06:01 Sodium 134 L (137-145) mmol/L Chloride 111 H (98-107) mmol/L Carbon Dioxide 20 L 21 L (22-30) mmol/L BUN 49 H 40 H (7-17) mg/dL Creatinine 3.11 H 2.32 H (0.52-1.04) mg/dL Glucose 124 H (74-99) mg/dL AST 43 H (14-36) U/L Total Protein 9.1 H (6.3-8.2) g/dL Albumin 3.4 L (3.5-5.0) g/dL Lipase 378 H (23-300) U/L Assessment and Plan Plan: 1 acute kidney failure: With acute kidney injury most likely from ATN no sign of obstructive uropathy or kidney stone at this point, this could be reaction to either antibiotics, dehydration or reaction to the rabies shot. We'll continue hydration consult nephrology recheck BUN/creatinine 24 hours. 2 severe cellulitis and cat scratch and bite of the right upper extremity: Patient had finished her course of antibiotic despite the reaction to the penicillin toward the end she finished the seventh course. Patient completed rabies vaccine on Friday. 3 COPD: Still on Ventolin HFA as needed refuses steroid inhaler at this point. 4 hypertension: Has been on lisinopril 5 mg a day. 5 borderline diabetes: Continue Accu-Chek with sliding scales coverage. 6 elevated lipase with no sign of pancreatitis repeat lipase and amylase in 24 hours at this point continue conservative management. 7 history of uterine cancer post hysterectomy. 8 DVT prophylaxis: Patient will be on heparin subcutaneous. 9 GI prophylaxis: Patient be on Pepcid 20 mg daily. CODE STATUS: Full code. Discharge plan: Return home. Impression and plan of care have been directed as dictated by the signing physician. Alea Cervantes nurse practitioner acting as scribe for signing physician.
--- NOTE | 2019-08-12 15:31 | CONS ---
CONSULTATION REASON FOR CONSULT: Renal failure. HISTORY OF PRESENT ILLNESS: The patient is a 78-year-old female who was admitted to the hospital with abnormal labs as outpatient. The patient has a history of recent cat bite on the dorsum of her right hand. She was hospitalized, maintained on antibiotics and discharged home. However, labs done as outpatient showed a serum creatinine above 3, and therefore patient was admitted. She denied use of any nonsteroidal anti-inflammatory agents. The patient did admit to not eating or drinking much over the last week or so. She had decreased urine output. Prior creatinine was 0.9 on 07/28/2019. Patient was maintained on ANGELA inhibitors at home. Her blood pressure has not been significantly low. Currently patient is maintained on IV fluids and creatinine is down to 2.3. A UA is not available. 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 PAST SURGICAL HISTORY: Appendectomy, hysterectomy. SOCIAL HISTORY: The patient is a former smoker. No history of drug abuse or alcohol abuse. MEDICATIONS: Medications prior to admission included Augmentin, cetirizine, Ecotrin, Tylenol, Pepcid, Zestril, Dyazide, Percocet. ALLERGIES: ALLERGIES include CODEINE, which causes confusion. REVIEW OF SYSTEMS: As per HPI. Other systems negative. PHYSICAL EXAMINATION: Patient is comfortable, awake, alert, oriented x3, not in any acute distress. Blood pressure is 117/68, heart rate 81 per minute. She is afebrile. EXAMINATION OF THE HEART: S1 and S2. EXAMINATION OF LUNGS: Bilateral breath sounds are heard. ABDOMEN: Soft, non-tender. Examination of lower extremities shows no evidence of edema. Healing wound is noted on her right hand and forearm. MEDICAL RESEARCHER examination is grossly intact. LABS: Labs show sodium 139, potassium 4.5, chloride 111. CO2 is 21, BUN 40, creatinine 2.32. ASSESSMENT: 1. Acute kidney injury, most likely prerenal, currently improved with IV hydration. Check urinalysis. Rule out underlying interstitial nephritis. Previous creatinine was 0.9 on 07/28/2019. Currently patient is nonoliguric with improved urine output. Continue to hold off on ANGELA inhibitors for now. Ultrasound does not show any evidence of hydronephrosis. 2. History of nephrolithiasis. No stone noted on the current ultrasound. Cyst was seen. 3. Recent cat bite, status post antibiotics, currently maintained on Augmentin prior to admission. 4. Chronic obstructive pulmonary disease. 5. Hypertension, controlled. Maintained off of lisinopril. PLAN: Continue IV fluids. Continue off of ANGELA inhibitors. Repeat labs in a.m. Check urinalysis. Thank you for this consultation. Will continue to follow the patient with you during her hospitalization. MMODL / IJN: [id number] /
[2019-08-12 17:00] LABS: Appearance,Urine Clear (Clear); Bilirubin,Urine Negative (Negative); Blood,Urine Negative (Negative); Color,Urine Light Yellow; Glucose,Urine (UA) Negative (Negative); Ketones,Urine Negative (Negative); Leukocyte Esterase,Urine Negative (Negative); Nitrite,Urine Negative (Negative); Protein,Urine Negative (Negative); Specific Gravity,Urine 1.008 (1.001-1.035); Urobilinogen,Urine <2.0 mg/dL (<2.0)
[2019-08-12] MEDS: ACETAMINOPHEN TAB 325 MG TAB PO PRN (22:16)
[2019-08-13] MEDS: SODIUM CHLORIDE 0.9% 1,000 ML IV SCH ×3 (02:35→18:18)
[2019-08-13 08:18] LABS: Calcium 8.4 mg/dL (8.4-10.2); Potassium 4.5 mmol/L (3.5-5.1)
[2019-08-13] MEDS: FAMOTIDINE 20 MG TAB PO SCH (08:33)
[2019-08-13] MEDS: ACETAMINOPHEN TAB 325 MG TAB PO PRN (08:33)
[2019-08-13] MEDS: LORATADINE 10 MG TAB PO SCH (08:34)
--- NOTE | 2019-08-13 09:54 | P.PN ---
Subjective Progress Note Date: 08/13/19 78-year-old female one of Dr. Benoit (changed to Dr. Burton as she had not followed with him in 3 years) patient who was hospitalized on July 27 until July 27 14,024 right upper extremity acute cat bite and scratch with severe cellulitis. Patient was on Unasyn and had rabies series of shots. Left the hospital doing well with creatinine 0.9 at the time. Patient apparently developed to have significant side effect to Augmentin which was sent home on and contacted Sayed stop the antibiotic according to her she described significant reaction with rash all over with slight itching and irritation. She was in to see her primary care physician today why she wasn't feeling and had severe abnormal creatinine with her blood test running over 3.0 patient is making less urine output slight difficulty with urination as well. Patient was referred to demurs department for acute kidney injury severe dehydration and possible obstructive uropathy. Ended up having CT of the abdomen and pelvis with findings suspected for mild subacute compression time of fracture of the L1 vertebrae with no renal stone or hydronephrosis but had mild hepatic cirrhosis on the finding with a CAT scan. Ultrasound of the kidney showed suboptimal study with evidence of chronic medical renal disease with no gross hydronephrosis bilaterally. She was started on hydration will be admitted to the hospital consult nephrology watch her urine output. Mild incidental finding of elevated lipase with no sign or symptom of pancreatitis. 08/11: Repeat blood work this morning reveals a normal CBC, BUN 14 creatinine 2.3 to, potassium 4.5, chloride 111, CO2 21. Liver function tests are normal. Patient states she received her last rabies vaccine on Friday. Patient is currently on IV fluids at 125 mL per hour. Nephrology is on consult. Coronavirus PCR not detected. Patient has been afebrile, heart rate 83, blood pressure 139/65 and pulse ox 98% on room air. 08/12: Repeat blood work today reveals sodium 141, potassium 4.5, chloride 113, CO2 22, BUN 25 creatinine 1.35. The patient denies any complaints other than being uncomfortable with her bed. She is eating and drinking adequately as well as has good urine output. She has been continued on IV fluids. She was seen by Dr. Luciano with recommendations to continue holding Drew inhibitor. Urinalysis was clear with nitrate leukoesterase and protein negative. Anticipate discharge home tomorrow. Repeat lab work ordered for the morning. Objective - Vital Signs Vital signs: Vital Signs Temp 97.7 F 08/13/19 07:00 Pulse 81 08/13/19 07:00 Resp 17 08/13/19 07:00 BP 135/80 08/13/19 07:00 Pulse Ox 97 08/13/19 07:00 Intake & Output 08/12/19 08/13/19 08/13/19 18:59 06:59 18:59 Intake Total 1915 200 Output Total 1000 1850 Balance 915 -1650 Intake: Intake, IV Titration 1375 Amount Sodium Chloride 0.9% 1, 1375 000 ml @ 125 mls/hr IV . Q8H EUSE[facility] Rx#:[id number] Oral 540 200 Output: Urine 1000 1850 Other: Voiding Method Toilet # Voids 3 1 - Exam Review of Systems CONSTITUTIONAL: Well-developed no acute respiratory distress. Denies fevers, denies chills. EYES: No icterus sclerae, no conjunctivitis. EARS, NOSE, MOUTH, THROAT, and FACE: No sore throat, lymphadenopathy, carotid bruits or deformity. RESPIRATORY: No SOB cough or wheezes. CARDIOVASCULAR: No CP, Palpitation, PND, Orthopnea, or angina. GASTROINTESTINAL: No Abd pain, Nausea or vomiting, no Diarrhea or constipation, No GI Bleed, no distention or masses. GENITOURINARY: Acute kidney injury with kidney failure. INTEGUMENT/BREAST: Pain and discomfort in the right upper extremity from cat scratch improved. HEMATOLOGIC/LYMPHATIC: Negative for bleed or purpura. MUSCULOSKELTAL: Negative for Myalgia or arthralgia. NEURLOGICAL: No LOC, Sz or syncope, blurred vision dizziness or abnormality. BEHAVIORAL/PSYCH: Negative. ENDOCRINE: Negative. Physical Examination General Appearance: Alert, cooperative, no distress, appears stated age. Patient appears to be in no acute distress. Neck HEENT: Supple, no lymphadenopathy, no thyroid enlargement, no carotid bruits. Lungs: Clear to auscultation without crackles or wheezes no rhonchi, no deformity. Chest Wall: Chest wall normal expansion with deep inspiration no tenderness and no deformity was found on exam, no costochondral pain or discomfort. Heart: Regular rate and rhythm, S1, S2 normal, no murmur, rub or gallop. Back: Symmetric, no curvature, ROM normal, no CVA tenderness. Abdomen: Soft, non-tender, bowel sounds active all four quadrants, Extremities right upper extremity the cats scratch and bite area has healed with no drainage still have slight irritation and discomfort with a scar tissue. Pulses: 2+ and symmetric. Skin: Skin color, texture, tugor normal, no rashes or lesions. Neurologic: Alert oriented x3 cranial nerves II through XII intact, no motor deficit, no abnormal balance or gait. - Labs CBC & Chem 7: 08/12/19 06:01 08/13/19 07:12 Labs: Abnormal Lab Results - Last 24 Hours (Table) 08/13/19 Range/Units 07:12 Chloride 113 H (98-107) mmol/L BUN 25 H (7-17) mg/dL Creatinine 1.35 H (0.52-1.04) mg/dL Lipase 446 H (23-300) U/L Assessment and Plan Plan: 1 acute kidney failure: With acute kidney injury most likely from ATN no sign of obstructive uropathy or kidney stone at this point, this could be reaction to either antibiotics, dehydration or reaction to the rabies shot. Continue hydration, nephrology consult appreciated. Repeat lab work in the morning. 2 severe cellulitis and cat scratch and bite of the right upper extremity: Patient had finished her course of antibiotic despite the reaction to the penicillin toward the end she finished the seventh course. Patient completed rabies vaccine on Friday. 3 COPD: Still on Ventolin HFA as needed refuses steroid inhaler at this point. 4 hypertension: Has been on lisinopril 5 mg a day. 5 borderline diabetes: Continue Accu-Chek with sliding scales coverage. 6 elevated lipase with no sign of pancreatitis repeat lipase and amylase in 24 hours at this point continue conservative management. 7 history of uterine cancer post hysterectomy. 8 DVT prophylaxis: Patient will be on heparin subcutaneous. 9 GI prophylaxis: Patient be on Pepcid 20 mg daily. CODE STATUS: Full code. Discharge plan: Return home on Friday. Impression and plan of care have been directed as dictated by the signing physician. Alea Cervantes nurse practitioner acting as scribe for signing physician.
[2019-08-13] MEDS: oxyCODONE-APAP 5-325MG 1 EACH TAB PO PRN ×3 (10:30→22:14)
--- NOTE | 2019-08-13 16:19 | PN ---
PROGRESS NOTE Patient is seen for followup for acute kidney injury. She was admitted to the hospital with a creatinine of 3.1 after recent hospitalization for a cat bite. Currently maintained on IV fluids. Renal function has improved significantly and her creatinine is down to 1.35 mg/dL. The patient denies any significant complaints. She feels well and has had good urine output. PHYSICAL EXAMINATION: On examination, blood pressure is 139/75, heart rate 74 per minute. She is afebrile. EXAMINATION OF THE HEART: S1 and S2. EXAMINATION OF LUNGS: Bilateral breath sounds are heard. ABDOMEN: Soft, non-tender. Examination of lower extremities shows no significant edema. MATERIALS SPECIALIST exam is grossly intact. LABS: Labs show sodium 141, potassium 4.5, chloride 113, BUN 25, creatinine 1.35. ASSESSMENT: 1. Acute kidney injury, mostly prerenal, currently improved with IV hydration. I will decrease IV fluids to about 60 mL/hour. 2. Cat bite, status post antibiotics, on the dorsum of the right hand. 3. Chronic obstructive pulmonary disease. 4. Hypertension, currently controlled. PLAN: Can resume ANGELA inhibitors down the road if blood pressure is elevated. Decrease IV fluids. The patient can likely be discharged tomorrow. MMODL / IJN: [id number] /
[2019-08-14 07:55] VITALS: BP 134/67; PULSE 82; RESP 18; TEMP 98.1
[2019-08-14] MEDS ORDERED: amLODIPine 5 MG TAB PO SCH (09:00)
[2019-08-14] MEDS: LORATADINE 10 MG TAB PO SCH (09:10)
[2019-08-14] MEDS: FAMOTIDINE 20 MG TAB PO SCH (09:10)
--- NOTE | 2019-08-14 09:26 | P.DS ---
Providers Date of admission: 08/11/19 18:36 Expected date of discharge: 08/14/19 Attending physician: Elliot Mike Consults: 08/11/19 18:36 Consult Physician Urgent Consulting Provider: Catherine Luciano Consult Reason/Comments: rony Do you want consulting provider notified?: Yes 08/12/19 05:38 Consult Physician Routine Consulting Provider: Catherine Luciano Consult Reason/Comments: AKF Do you want consulting provider notified?: Yes Primary care physician: Dennis Burton MD Hospital Course: 78-year-old female one of Dr. Benoit (changed to Dr. Burton as she had not followed with him in 3 years) patient who was hospitalized on July 27 until July 27 14,024 right upper extremity acute cat bite and scratch with severe cellulitis. Patient was on Unasyn and had rabies series of shots. Left the hospital doing well with creatinine 0.9 at the time. Patient apparently developed to have significant side effect to Augmentin which was sent home on and contacted Sayed stop the antibiotic according to her she described significant reaction with rash all over with slight itching and irritation. She was in to see her primary care physician today why she wasn't feeling and had severe abnormal creatinine with her blood test running over 3.0 patient is making less urine output slight difficulty with urination as well. Patient was referred to demurs department for acute kidney injury severe dehydration and possible obstructive uropathy. Ended up having CT of the abdomen and pelvis with findings suspected for mild subacute compression time of fracture of the L1 vertebrae with no renal stone or hydronephrosis but had mild hepatic cirrhosis on the finding with a CAT scan. Ultrasound of the kidney showed suboptimal study with evidence of chronic medical renal disease with no gross hydronephrosis bilaterally. She was started on hydration will be admitted to the hospital consult nephrology watch her urine output. Mild incidental finding of elevated lipase with no sign or symptom of pancreatitis. 08/11: Repeat blood work this morning reveals a normal CBC, BUN 14 creatinine 2.3 to, potassium 4.5, chloride 111, CO2 21. Liver function tests are normal. Patient states she received her last rabies vaccine on Friday. Patient is currently on IV fluids at 125 mL per hour. Nephrology is on consult. Coronavirus PCR not detected. Patient has been afebrile, heart rate 83, blood pressure 139/65 and pulse ox 98% on room air. 08/12: Repeat blood work today reveals sodium 141, potassium 4.5, chloride 113, CO2 22, BUN 25 creatinine 1.35. The patient denies any complaints other than being uncomfortable with her bed. She is eating and drinking adequately as well as has good urine output. She has been continued on IV fluids. She was seen by Dr. Luciano with recommendations to continue holding Drew inhibitor. Urinalysis was clear with nitrate leukoesterase and protein negative. Anticipate discharge home tomorrow. Repeat lab work ordered for the morning. 08/13: Patient denies any new complaints isn't anxious to be discharged home. She has been afebrile, heart rate 82, blood pressure 134/67 and pulse ox 97% on room air. Repeat lab work reveals sodium 141, potassium 4.8, chloride 108, CO2 26, BUN 17 and creatinine 1.14. Nephrology has cleared the patient for discharge home today and patient may resume lisinopril blood pressure as needed. We will plan to discontinue lisinopril and Dyazide and start amlodipine. Patient will be discharged home today in stable condition. She has been instructed to follow-up in the office on Friday for repeat lab work. Discharge diagnoses: 1 acute kidney failure from ATN, resolved. 2 severe cellulitis and cat scratch and bite of the right upper extremity completed rabies vaccine schedule and antibiotics. 3 COPD 4 hypertension: 5 borderline diabetes 6 elevated lipase with no sign of pancreatitis 7 history of uterine cancer post hysterectomy. 8 COVID-19 infection not present. Discharge plan: home. Impression and plan of care have been directed as dictated by the signing physician. Alea Cervantes nurse practitioner acting as scribe for signing physician. Patient Condition at Discharge: Good Plan - Discharge Summary New Discharge Prescriptions: New amLODIPine [Norvasc] 5 mg PO DAILY #30 tab Continue Cetirizine HCl 10 mg PO DAILY Aspirin EC [Ecotrin] 325 mg PO DAILY PRN PRN Reason: Pain Mupirocin 2% Oint [Bactroban 2% Oint] 1 applic TOPICAL TID #60 gram Famotidine [Pepcid] 20 mg PO DAILY #30 tab oxyCODONE-APAP 5-325MG [Percocet 5-325 mg] 1 each PO Q4HR PRN #12 tab PRN Reason: Severe Pain Acetaminophen Tab [Tylenol] 650 mg PO Q6HR PRN tab PRN Reason: Mild Pain Or Fever > 100.5 Albuterol Sulfate [Ventolin HFA] 2 puff INHALATION Q6H PRN #1 inhaler PRN Reason: Shortness Of Breath Discontinued Lisinopril [Zestril] 5 mg PO DAILY #30 tab Triamterene-Hctz 37.5-25Mg [Dyazide 37.5-25 Capsule] 1 cap PO DAILY #30 capsule Discharge Medication List Aspirin EC [Ecotrin] 325 mg PO DAILY PRN 07/28/19 [History] Cetirizine HCl 10 mg PO DAILY 07/28/19 [History] Acetaminophen Tab [Tylenol] 650 mg PO Q6HR PRN tab 08/01/19 [Rx] Albuterol Sulfate [Ventolin HFA] 2 puff INHALATION Q6H PRN #1 inhaler 08/01/19 [Rx] Famotidine [Pepcid] 20 mg PO DAILY #30 tab 08/01/19 [Rx] Mupirocin 2% Oint [Bactroban 2% Oint] 1 applic TOPICAL TID #60 gram 08/01/19 [Rx] oxyCODONE-APAP 5-325MG [Percocet 5-325 mg] 1 each PO Q4HR PRN #12 tab 08/01/19 [Rx] amLODIPine [Norvasc] 5 mg PO DAILY #30 tab 08/14/19 [Rx] Follow up Appointment(s)/Referral(s): Dennis Burton MD [Primary Care Provider] - 1-2 days (Friday) [facility], [NON-STAFF] - As Needed Patient Instructions/Handouts: Acute Kidney Injury (DC) Discharge Disposition: HOME SELF-CARE
[2019-08-14 10:05] LABS: Calcium 9.2 mg/dL (8.4-10.2); Potassium 4.8 mmol/L (3.5-5.1)
== END 2019-08-14 12:26 | disposition home health service (06) | DRG 683 ==
LOC: EC 16:44 → 4SSUR 18:36
PROVIDERS: ADMIT Internal Medicine Geriatric Medicine; ATTEND Internal Medicine Geriatric Medicine
DX: N17.0 Acute kidney failure with tubular necrosis (principal); L03.113 Cellulitis of right upper limb; E78.5 Hyperlipidemia, unspecified; E86.0 Dehydration; N18.9 Chronic kidney disease, unspecified; I12.9 Hypertensive chronic kidney disease with stage 1 through stage 4 chronic kidney disease, or unspecified chronic kidney disease; J44.9 Chronic obstructive pulmonary disease, unspecified; K74.60 Unspecified cirrhosis of liver; L27.0 Generalized skin eruption due to drugs and medicaments taken internally; T36.0X5A Adverse effect of penicillins, initial encounter; S41.151D Open bite of right upper arm, subsequent encounter; W55.01XD Bitten by cat, subsequent encounter; R73.03 Prediabetes; W55.03XD Scratched by cat, subsequent encounter; Z79.82 Long term (current) use of aspirin; Z79.899 Other long term (current) drug therapy; Z82.3 Family history of stroke; Z85.42 Personal history of malignant neoplasm of other parts of uterus; Z87.442 Personal history of urinary calculi; Z11.59 Encounter for screening for other viral diseases; Z87.891 Personal history of nicotine dependence; Z90.710 Acquired absence of both cervix and uterus; Z53.20 Procedure and treatment not carried out because of patient's decision for unspecified reasons; Z90.49 Acquired absence of other specified parts of digestive tract; Z79.2 Long term (current) use of antibiotics; R74.8 Abnormal levels of other serum enzymes
CPT/HCPCS: 36415; 74176; 76770; 80048; 80053; 81003; 82550; 83605; 83690; 85025; 85610; 85730; 96360; 99284

== ENCOUNTER 2019-10-12 08:56 | Emergency (ER) | payer MEDICARE ==
[2019-10-12 09:03] VITALS: RESP 18
[2019-10-12] MEDS ORDERED: LORazepam 1 MG TAB PO STA (09:22)
[2019-10-12] MEDS ORDERED: KETOROLAC 30 MG/ML 1 ML VIAL IM STA (09:22)
--- NOTE | 2019-10-12 10:01 | ED ---
General Adult HPI - General Chief complaint: Recheck/Abnormal Lab/Rx Stated complaint: ABD BP Time Seen by Provider: 10/12/19 09:00 Source: patient, EMS, RN notes reviewed, old records reviewed Mode of arrival: EMS Limitations: no limitations - History of Present Illness Initial comments: this is a 78-year-old female presents emergency Department concerned because her blood pressure was in the 80s and then it was up to 188 and was back down to the 80s and was back up to 200 she was cough. Patient denies headache patient denies numbness weakness. Patient denies abdominal pain patient denies nausea vomiting or diarrhea. Patient denies any swelling to legs or calf tenderness. Patient states she normally takes her blood pressure got less concerned so she decided come in. Patient states she's also been very anxious lately because a lot of things in her life gone wrong over the last week and it made her extremely anxious. Patient denies any chest pain difficult breathing shortness of breath. Patient states she has chronic back pain but it's no worse than it always is. Patient denies any recent fever chills or cough - Related Data Home Medications Medication Instructions Recorded Confirmed Atorvastatin Calcium [Lipitor] 40 mg PO HS 10/08/19 10/12/19 amLODIPine [Norvasc] 10 mg PO HS 10/08/19 10/12/19 diphenhydrAMINE [Benadryl] 25 mg PO HS PRN 10/08/19 10/12/19 traMADol HCL 50 mg PO Q4H PRN 10/12/19 10/12/19 Allergies Allergy/AdvReac Type Severity Reaction Status Date / Time amoxicillin [From Augmentin] Allergy Rash/Hives Verified 10/12/19 09:45 clavulanic acid Allergy Rash/Hives Verified 10/12/19 09:45 [From Augmentin] codeine Allergy Confusion, Verified 10/12/19 09:45 HEADACHE Review of Systems ROS Statement: Those systems with pertinent positive or pertinent negative responses have been documented in the HPI. ROS Other: All systems not noted in ROS Statement are negative. 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 Mcfarland in at [facility] in [place], kidney stones Past Anesthesia/Blood Transfusion Reactions: No Reported Reaction Past Psychological History: Anxiety Smoking Status: Former smoker Past Alcohol Use History: Rare Past Drug Use History: None Reported - Past Family History Mother Family Medical History: Cancer Additional Family Medical History / Comment(s): Mother at age 85 from a brain tumor. Father Family Medical History: CVA/TIA Additional Family Medical History / Comment(s): Father at age 75 from a CVA. Sister(s) Additional Family Medical History / Comment(s): Patient has 1 sister but she has no contact with her as her sister stole her identity. Brother(s) Additional Family Medical History / Comment(s): Patient does not have any brothers. Patient has 4 children, one at age 7 weeks, other children with no major medical problems. Patient is also adopted 1 child. General Exam - General Exam Comments Initial Comments: GENERAL: Patient is well-developed and well-nourished. Patient is nontoxic and well- hydrated and is in no acute distress. ENT: Neck is soft and supple. No significant lymphadenopathy is noted. Oropharynx is clear. Moist mucous membranes. Neck has full range of motion without eliciting any pain. EYES: The sclera were anicteric and conjunctiva were pink and moist. Extraocular movements were intact and pupils were equal round and reactive to light. Eyelids were unremarkable. PULMONARY: Unlabored respirations. Good breath sounds bilaterally. No audible rales rhonchi or wheezing was noted. CARDIOVASCULAR: There is a regular rate and rhythm without any murmurs gallops or rubs. ABDOMEN: Soft and nontender with normal bowel sounds. SKIN: Skin is clear with no lesions or rashes and otherwise unremarkable. NEUROLOGIC: Patient is alert and oriented x3. Cranial nerves II through XII are grossly intact. Motor and sensory are also intact. Normal speech, volume and content. Symmetrical smile. MUSCULOSKELETAL: Normal extremities with adequate strength and full range of motion. LYMPHATICS: No significant lymphadenopathy is noted PSYCHIATRIC: Patient is very anxious. Limitations: no limitations Course Vital Signs 10/12/19 10/12/19 10/12/19 08:57 09:04 09:28 Temperature 97.8 F Pulse Rate 88 85 Pulse Rate [ 88 Apical] Respiratory 18 18 Rate Blood Pressure 146/69 141/65 O2 Sat by Pulse 98 99 Oximetry 10/12/19 10:04 Temperature 98 F Pulse Rate 81 Pulse Rate [ Apical] Respiratory 18 Rate Blood Pressure 122/74 O2 Sat by Pulse 95 Oximetry Medical Decision Making - Medical Decision Making EKG shows normal sinus rhythm at 80 bpm MN interval is 162 QRS is 98 QT interval is 42 QTC is 463 per patient's EKG shows no ST segment elevation or depression. Disposition Clinical Impression: Anxiety Disposition: HOME SELF-CARE Instructions (If sedation given, give patient instructions): Anxiety (ED) Is patient prescribed a controlled substance at d/c from ED?: No Referrals: Dennis Burton MD [Primary Care Provider] - 1-2 days Time of Disposition: 10:01
[2019-10-12 10:05] VITALS: BP 122/74; PULSE 81; TEMP 98
== END 2019-10-12 10:09 | disposition home or self-care (01) ==
LOC: EC 08:56
DX: F41.9 Anxiety disorder, unspecified (principal); I10 Essential (primary) hypertension; G89.29 Other chronic pain; M54.9 Dorsalgia, unspecified; E78.5 Hyperlipidemia, unspecified; M19.90 Unspecified osteoarthritis, unspecified site; Z85.9 Personal history of malignant neoplasm, unspecified; Z87.891 Personal history of nicotine dependence; Z79.891 Long term (current) use of opiate analgesic; Z79.899 Other long term (current) drug therapy; Z88.0 Allergy status to penicillin; Z88.5 Allergy status to narcotic agent
CPT/HCPCS: 93005; 99284; 96372; J1885

== ENCOUNTER → 2019-11-29 | Outpatient (CLI) | payer MEDICARE ==
--- NOTE | 2019-11-29 18:32 | ECHOF ---
Referral Reason:R06.02 Shortness of breath MEASUREMENTS -------- HEIGHT: 160.0 cm WEIGHT: 82.1 kg BP: IVSd: 1.1 cm (0.6 - 1.1) LVIDd: 3.7 cm (3.9 - 5.3) LVPWd: 1.2 cm (0.6 - 1.1) IVSs: 1.5 cm LVIDs: 2.2 cm LVPWs: 1.5 cm RVIDd: 3.0 cm (< 3.3) LAESV Index (A-L): 19.44 ml/m MV E Alvaro: 0.75 m/s MV DecT: 211 ms MV A Alvaro: 1.07 m/s MV E/A Ratio: 0.69 RAP: 5.00 mmHg RVSP: 24.65 mmHg FINDINGS -------- This was a technically difficult study with suboptimal views. The left ventricular size is normal. There is mild concentric left ventricular hypertrophy. Overa ll left ventricular systolic function is normal with, an EF between 55 - 60 %. The right ventricle is normal in size. Normal LA size by volume 22+/-6 ml/m2. The right atrium was not well visualized. 5.0mg of Lumason was utilized for enhancement of images Interatrial and interventricular septum intact. The aortic valve was not well visualized. There is no evidence of aortic regurgitation. There is no evidence of aortic stenosis. The mitral valve was not well visualized. No mitral regurgitation. The tricuspid valve was not well visualized. Mild tricuspid regurgitation present. There is no ev idence of pulmonary hypertension. The right ventricular systolic pressure, as measured by Doppler, is 24.65mmHg. The pulmonic valve was not well visualized. IVC Not well visulized. There is no pericardial effusion. CONCLUSIONS -------- 1. The left ventricular size is normal. 2. There is mild concentric left ventricular hypertrophy. 3. Overall left ventricular systolic function is normal with, an EF between 55 - 60 %. 4. Mild tricuspid regurgitation present. ADMISSIONS SPECIALIST: Frida Giron [facility]
== END | disposition home or self-care (01) ==
LOC: RADECHMAIN 13:25
PROVIDERS: ATTEND Internal Medicine
DX: I07.1 Rheumatic tricuspid insufficiency (principal)
CPT/HCPCS: C8929; Q9950; 93306

== ENCOUNTER → 2020-01-11 | Outpatient (CLI) | payer MEDICARE ==
--- NOTE | 2020-01-11 10:24 | US ---
EXAMINATION TYPE: US liver DATE OF EXAM: 01/11/2020 COMPARISON: CT 10/08/2019 CLINICAL HISTORY: 79-year-old female K74.60 Unspecified cirrhosis of liver Technique: Multiple sonographic images of the right upper quadrant are obtained. FINDINGS: EXAM MEASUREMENTS: Liver Length: 11.3 cm Gallbladder Wall: 0.3 cm CBD: 0.3 cm Right Kidney: 11.0 x 4.1 x 4.8 cm Pancreas: Suboptimal visualization of the pancreatic tail due to shadowing from bowel gas. Visualize d portions show no gross abnormality. Liver: Subtle contour nodularity and heterogeneous appearance. No focal lesion seen. Gallbladder: Borderline wall thickness. However, no abnormal distention, shadowing calculus, or surr ounding fluid. Evidence for sonographic Adams's sign: no CBD: wnl Right Kidney: Cyst measuring 3.5 x 2.8 x 3.3cm at the lower pole. No hydronephrosis. IMPRESSION: 1. Heterogeneous liver with nodular contour. Correlate for underlying cysts cirrhosis. 2. No gallstones or evidence for acute cholecystitis. No biliary ductal dilatation. 3. Incidental 3.5 cm benign cyst lower pole right kidney.
[2020-01-11 11:02] LABS: Basophils # (A) 0.1 k/uL (0-0.2); Basophils % (A) 1 %; Eosinophils # (A) 0.5 k/uL (0-0.7); Eosinophils % (A) 8 %; HCT 42.3 % (34.0-46.0); HGB 12.9 gm/dL (11.4-16.0); Lymphocytes # (A) 1.8 k/uL (1.0-4.8); Lymphocytes % (A) 29 %; MCHC 30.5 g/dL (31.0-37.0); MCV 101.6 fL (80.0-100.0); Macrocytosis Slight; Mean Platelet Volume 7.1; Monocytes # (A) 0.3 k/uL (0-1.0); Monocytes % (A) 5 %; Neutrophils # (A) 3.5 k/uL (1.3-7.7); Neutrophils % (A) 56 %; Platelet Count 235 k/uL (150-450); RBC 4.17 m/uL (3.80-5.40); RDW 13.9 % (11.5-15.5); WBC 6.3 k/uL (3.8-10.6)
[2020-01-11 11:07] LABS: Albumin 4.1 g/dL (3.5-5.0); Calcium 9.2 mg/dL (8.4-10.2); Potassium 4.5 mmol/L (3.5-5.1); Total Bilirubin 0.5 mg/dL (0.2-1.3)
[2020-01-11 12:44] LABS: INR 0.9 (<1.2); Prothrombin Time 9.5 sec (9.0-12.0)
[2020-01-11 15:23] LABS: Alpha Fetoprotein, Tumor Mkr 3.5 ng/mL (0.0-7.9)
[2020-01-11 16:38] LABS: Hepatitis A Antibody IgM Non-Reactive (Non-Reactive); Hepatitis B Core IgM Non-Reactive (Non-Reactive); Hepatitis B Surface Antigen Non-Reactive (Non-Reactive); Hepatitis C IgG Antibody Non-Reactive (Non-Reactive)
== END | disposition home or self-care (01) ==
LOC: RADUSWWP 09:18
PROVIDERS: ATTEND Internal Medicine Gastroenterology
DX: K76.89 Other specified diseases of liver (principal); N28.1 Cyst of kidney, acquired; K74.60 Unspecified cirrhosis of liver
CPT/HCPCS: 36415; 76705; 80053; 80074; 82105; 85025; 85610

== ENCOUNTER → 2020-03-24 | Outpatient (CLI) | payer MEDICARE ==
[2020-03-24 09:28] LABS: Basophils # (A) 0.1 k/uL (0-0.2); Basophils % (A) 1 %; Eosinophils # (A) 0.6 k/uL (0-0.7); Eosinophils % (A) 8 %; HCT 41.1 % (34.0-46.0); HGB 13.4 gm/dL (11.4-16.0); Lymphocytes # (A) 2.2 k/uL (1.0-4.8); Lymphocytes % (A) 29 %; MCH 31.4 pg (25.0-35.0); MCHC 32.6 g/dL (31.0-37.0); MCV 96.1 fL (80.0-100.0); Monocytes # (A) 0.4 k/uL (0-1.0); Monocytes % (A) 5 %; Neutrophils # (A) 4.2 k/uL (1.3-7.7); Neutrophils % (A) 55 %; Platelet Count 214 k/uL (150-450); RBC 4.27 m/uL (3.80-5.40); RDW 13.1 % (11.5-15.5); WBC 7.6 k/uL (3.8-10.6)
[2020-03-24 17:33] LABS: African American GFR (CKD) 49.8 (60.0-200.0); Albumin 4.8 g/dL (3.80-4.90); Albumin/Globulin Ratio 1.45 (1.60-3.17); Anion Gap 5.7 mmol/L (4.00-12.00); BUN/Creat Ratio 22.5 Ratio (12.00-20.00); Carbon Dioxide 28.3 mmol/L (21.6-31.8); Chol/HDL Ratio 2.41; Globulin 3.3 g/dL (1.6-3.3); LDL Cholesterol,Calculated 101.4 mg/dL (0.0-131.0); Non-African American GFR(CKD) 42.9 (60.0-200.0); Total Bilirubin 0.7 mg/dL (0.3-1.2); Total Protein 8.1 g/dL (6.2-8.2); VLDL Calculation 19.6 mg/dL (5.00-40.00)
== END | disposition home or self-care (01) ==
LOC: LABWHC1 08:51
PROVIDERS: ATTEND Internal Medicine
DX: I10 Essential (primary) hypertension (principal)
CPT/HCPCS: 36415; 80053; 80061; 82105; 82306; 85025

== ENCOUNTER → 2020-05-17 | Outpatient (CLI) | payer MEDICARE ==
--- NOTE | 2020-05-17 15:51 | BD ---
EXAMINATION TYPE: Axial Bone Density DATE OF EXAM: 05/17/2020 COMPARISON: NONE CLINICAL HISTORY: 79 YR OLD FEMALE....ICD-10 CODE: M81.0 A.R. OSTEOPOROSIS Height: 62.4 Weight: 188 FRAX RISK QUESTIONS: Glucocorticoids (More than 3mos): YES (Ex: prednisone, prednisolone, methylprednisolone, dexamethasone, and hydrocortisone). History of Fracture in Adulthood: YES Secondary Osteoporosis: YES 3. Menopause before 45: YES RISK FACTORS HISTORY OF: HX OF COCCYX BONE FX.....BOTH ANKLES, BACK STRAINS, T-SPINE INJURIES, TOES, FEET > 50 YRS OLD Family History of Osteoporosis: YES, MOTHER WITH FXS Postmenopausal woman: MENOPAUSE AT 40 YRS OLD, HYST AT 28 Lost more than 2 inches in height since high school: YES Frequent falls: UNSTEADY Hyperparathyroidism: UNSURE Adrenal Insufficiency: ? MEDICATIONS: Prednisone or other steroids: PREDNISONE, FOR LUNGS AND PAIN, COPD INHALERS, FOR MANY MANY YRS Additional Medications: BP MEDS, STATIN FOR CHOLESTEROL, CALCIUM, PAIN MEDS, NSAIDS Additional History: HYPERTENSION, ARTHRITIS, CHOLESTEROL, EXAM MEASUREMENTS: Bone mineral densitometry was performed using the Fingo System. Bone mineral density as measured about the Lumbar spine is: ----- L1-L4(G/cm2): 1.364 T Score Values are as follows: ----- L1: 2.8 ----- L2: 0.7 ----- L3: 0.8 ----- L4: 2.1 ----- L1-L4: 1.5 Bone mineral density FIRST DEXA AT [facility] Bone mineral density about the R hip (g/cm2): 0.903 Bone mineral density about the L hip (g/cm2): 0.894 T Score values are as follows: -----R Neck: -1.6 -----L Neck: -1.5 -----R Total: -0.8 -----L Total: -0.9 Bone mineral density FIRST DEXA AT [facility] FRAX%s: THERE IS A 43.1% CHANCE FOR A MAJOR OSTEOPOROTIC FX AND A 25.9% FOR HIP......PROBABILITY F OR FX IN 10 YRS TIME IMPRESSION: Osteopenia (T Score between -2.5 and -1). There is slightly increased risk of fracture and the patient may be considered for treatment. Re-Screen 2-5 years. NOTE: T-SCORE=SD OF THE YOUNG ADULT MEAN.
--- NOTE | 2020-05-19 11:58 | MM ---
Reason for exam: screening (asymptomatic). History: Patient is postmenopausal and has history of other cancer at age 28. Excisional biopsy of both breasts. Took hormonal contraceptives for 4 years. Physical Findings: A clinical breast exam by your physician is recommended on an annual basis and results should be correlated with mammographic findings. MG Screening Mammo w CAD Bilateral CC and MLO view(s) were taken. The breast tissue is heterogeneously dense. This may lower the sensitivity of mammography. Grouped calcifications subareolar right breast. Magnification views for further evaluation. Otherwise, no discrete abnormality. ASSESSMENT: Incomplete: need additional imaging evaluation, BI-RAD 0 RECOMMENDATION: Special view mammogram of the right breast. (magnification views) [facility] will attempt to contact patient to return for supplemental views.
== END | disposition home or self-care (01) ==
LOC: RADBDWWP 12:35
PROVIDERS: ATTEND Internal Medicine
DX: Z12.31 Encounter for screening mammogram for malignant neoplasm of breast (principal)
CPT/HCPCS: 77067; 77080

== ENCOUNTER → 2020-05-24 | Outpatient (CLI) | payer MEDICARE ==
--- NOTE | 2020-05-24 12:19 | MM ---
Reason for exam: additional evaluation requested from abnormal screening. Last mammogram was performed less than 1 month ago. History: Patient is postmenopausal and has history of other cancer at age 28. Excisional biopsy of both breasts. Took hormonal contraceptives for 4 years. Physical Findings: Nurse did not find any significant physical abnormalities on exam. MG Work Up Mamm w CAD RT CC with magnification, LM with magnification, and LM view(s) were taken of the right breast. Prior study comparison: May 17, 2020, bilateral MG screening mammo w CAD. The breast tissue is heterogeneously dense. This may lower the sensitivity of mammography. Finding: There are typically benign round, grouped/clustered calcifications in the right breast, localized to skin on lateral view. No suspicious grouped microcalcifications remain present. These results were verbally communicated with the patient and result sheet given to the patient on 05/24/20. ASSESSMENT: Benign, BI-RAD 2 RECOMMENDATION: Return to routine screening mammogram schedule for both breasts.
== END | disposition home or self-care (01) ==
LOC: RADMAMWWP 08:08
PROVIDERS: ATTEND Internal Medicine
DX: Z78.0 Asymptomatic menopausal state (principal)
CPT/HCPCS: 77065

== ENCOUNTER → 2020-05-30 | Outpatient (CLI) | payer MEDICARE | LOC: CPPFTMAIN 11:54 | PROVIDERS: ATTEND Internal Medicine | DX: J44.9 Chronic obstructive pulmonary disease, unspecified (principal) | CPT/HCPCS: 94060; 94726; 94729 ==

== ENCOUNTER → 2020-06-22 | Outpatient (CLI) | payer MEDICARE ==
[2020-06-22 09:37] LABS: Basophils # (A) 0.1 k/uL (0-0.2); Basophils % (A) 1 %; Eosinophils # (A) 0.6 k/uL (0-0.7); Eosinophils % (A) 8 %; HCT 39.3 % (34.0-46.0); HGB 13.3 gm/dL (11.4-16.0); Lymphocytes # (A) 2.4 k/uL (1.0-4.8); Lymphocytes % (A) 32 %; MCH 32.2 pg (25.0-35.0); MCHC 33.8 g/dL (31.0-37.0); MCV 95.3 fL (80.0-100.0); Mean Platelet Volume 7.1; Monocytes # (A) 0.5 k/uL (0-1.0); Monocytes % (A) 6 %; Neutrophils # (A) 3.8 k/uL (1.3-7.7); Neutrophils % (A) 50 %; Platelet Count 227 k/uL (150-450); RBC 4.12 m/uL (3.80-5.40); WBC 7.6 k/uL (3.8-10.6)
[2020-06-22 09:38] LABS: Albumin 4.3 g/dL (3.5-5.0); Calcium 9.3 mg/dL (8.4-10.2); Potassium 4.7 mmol/L (3.5-5.1); Total Bilirubin 0.6 mg/dL (0.2-1.3)
--- NOTE | 2020-06-22 13:49 | US ---
EXAMINATION TYPE: US liver DATE OF EXAM: 06/22/2020 COMPARISON: NONE CLINICAL HISTORY: K74.60 Unspecified cirrhosis of liver. known cirrhosis, back pain EXAM MEASUREMENTS: Liver Length: 14.0 cm Gallbladder Wall: 0.2 cm CBD: 0.4 cm Right Kidney: 10.9 x 3.8 x 5.2 cm bowel gas limits study Pancreas: wnl Liver: difficult to penetrate, lobular contour Gallbladder: wnl Evidence for sonographic Adams's sign: no CBD: wnl Right Kidney: 3.2 x 2.4 x 2.6cm inferior pole cyst seen IMPRESSION: 1. Superior pole right renal cyst
== END | disposition home or self-care (01) ==
LOC: RADUSWWP 08:27
PROVIDERS: ATTEND Internal Medicine Gastroenterology
DX: K74.60 Unspecified cirrhosis of liver (principal); K28.1 Acute gastrojejunal ulcer with perforation
CPT/HCPCS: 36415; 76705; 80053; 82105; 85025

== ENCOUNTER → 2020-09-11 | Outpatient (CLI) | payer MEDICARE ==
--- NOTE | 2020-09-11 15:11 | NM ---
EXAMINATION TYPE: NM bone scan whole body, NM bone SPECT DATE OF EXAM: 09/11/2020 COMPARISON: Lumbar MRI from outside institution 06/02/2020, CT 10/08/2019 HISTORY: Low back pain Delayed whole-body scanning was performed following the injection of 23.5 mCi Tc 99m MDP. Images acq uired 3 hours post injection. SPECT images were obtained. FINDINGS: There is a bandlike area of activity on bone scan which is thought likely to correspond to T12 verteb ral body which shows a superior endplate depression on CT and MRI. There is some mild uptake in the p osterior elements of L4 level which may correspond to the hypertrophic facet arthropathy changes seen on CT and MRI. Soft tissue uptake is normal. Uptake within the hips, feet, ankles, wrists and shoulders is likely de generative. IMPRESSION: Superior endplate osteoporotic compression fracture is favored, correlate with imaging studies prior to any intervention. Osteoarthritic changes as described.
== END | disposition home or self-care (01) ==
LOC: RADNMMAIN 08:48
PROVIDERS: ATTEND Orthopaedic Surgery Orthopaedic Surgery of the Spine
DX: M48.062 Spinal stenosis, lumbar region with neurogenic claudication (principal); M43.16 Spondylolisthesis, lumbar region; M43.17 Spondylolisthesis, lumbosacral region; M51.37 Other intervertebral disc degeneration, lumbosacral region; M51.36 Other intervertebral disc degeneration, lumbar region; M47.816 Spondylosis without myelopathy or radiculopathy, lumbar region; M47.817 Spondylosis without myelopathy or radiculopathy, lumbosacral region; S32.010A Wedge compression fracture of first lumbar vertebra, initial encounter for closed fracture; M41.86 Other forms of scoliosis, lumbar region; E66.9 Obesity, unspecified; X58.XXXA Exposure to other specified factors, initial encounter
CPT/HCPCS: 78306; 78803; A9503

== ENCOUNTER → 2020-10-27 | Outpatient (CLI) | payer MEDICARE ==
[2020-10-27 14:52] LABS: HCT 39.1 % (37.2-46.3); HGB 12.4 g/dL (12.0-15.0); MCHC 31.7 g/dL (32.0-37.0); Mean Platelet Volume 10.5 fL (9.5-12.2); Platelet Count 176 X 10*3/uL (140-440); RBC 3.87 X 10*6/uL (4.10-5.20); RDW 13.5 % (11.5-14.5); WBC 7.62 X 10*3/uL (4.50-10.00)
[2020-10-27 15:55] LABS: African American GFR (CKD) 37.7 (60.0-200.0); Albumin 4.5 g/dL (3.80-4.90); Albumin/Globulin Ratio 1.29 (1.60-3.17); Anion Gap 8.4 mmol/L (4.00-12.00); BUN/Creat Ratio 22.67 Ratio (12.00-20.00); Calcium 9.4 mg/dL (8.7-10.3); Carbon Dioxide 24.6 mmol/L (21.6-31.8); Chol/HDL Ratio 3.31; Globulin 3.5 g/dL (1.6-3.3); LDL Cholesterol,Calculated 159.4 mg/dL (0.0-131.0); Magnesium 2.2 mg/dL (1.5-2.4); Non-African American GFR(CKD) 32.6 (60.0-200.0); Potassium 4.7 mmol/L (3.5-5.5); Total Bilirubin 0.6 mg/dL (0.2-1.2); VLDL Calculation 20.6 mg/dL (5.00-40.00)
== END | disposition home or self-care (01) ==
LOC: LABWHC1 09:24
PROVIDERS: ATTEND Internal Medicine
DX: I10 Essential (primary) hypertension (principal); E55.9 Vitamin D deficiency, unspecified
CPT/HCPCS: 36415; 80053; 80061; 82306; 83735; 84443; 85027

== ENCOUNTER → 2021-01-09 | Outpatient (CLI) | payer MEDICARE ==
[2021-01-09 10:42] LABS: Basophils # (A) 0.1 k/uL (0-0.2); Basophils % (A) 1 %; Eosinophils # (A) 0.9 k/uL (0-0.7); Eosinophils % (A) 13 %; HCT 38.1 % (34.0-46.0); HGB 12.2 gm/dL (11.4-16.0); Lymphocytes # (A) 1.6 k/uL (1.0-4.8); Lymphocytes % (A) 21 %; MCH 31.7 pg (25.0-35.0); MCHC 32.1 g/dL (31.0-37.0); MCV 98.8 fL (80.0-100.0); Mean Platelet Volume 7.5; Monocytes # (A) 0.3 k/uL (0-1.0); Monocytes % (A) 4 %; Neutrophils # (A) 4.3 k/uL (1.3-7.7); Neutrophils % (A) 57 %; Platelet Count 255 k/uL (150-450); RBC 3.86 m/uL (3.80-5.40); RDW 12.9 % (11.5-15.5); WBC 7.4 k/uL (3.8-10.6)
--- NOTE | 2021-01-09 10:46 | US ---
EXAMINATION TYPE: US liver DATE OF EXAM: 01/09/2021 COMPARISON: US & CT CLINICAL HISTORY: K74.60 Unspecified cirrhosis of liver. 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 Fusiform prominence distal abdominal aorta measuring 3.3 cm. 2. Inferior pole right renal cyst. 3. Debris and/or gallstones within the dependent gallbladder. 4. Heterogenous lobular appearance of the liver can be compatible the patient's known cirrhosis.
[2021-01-09 11:21] LABS: Calcium 9.7 mg/dL (8.4-10.2); Potassium 4.6 mmol/L (3.5-5.1); Total Bilirubin 0.6 mg/dL (0.2-1.3); Total Protein 8.3 g/dL (6.3-8.2)
[2021-01-09 11:31] LABS: Prothrombin Time 10.3 sec (9.0-12.0)
== END | disposition home or self-care (01) ==
LOC: RADUSWWP 09:17
PROVIDERS: ATTEND Nurse Practitioner
DX: N28.1 Cyst of kidney, acquired (principal); K74.60 Unspecified cirrhosis of liver
CPT/HCPCS: 36415; 76705; 80053; 82105; 85025; 85610

== ENCOUNTER → 2021-08-16 | Outpatient (CLI) | payer MEDICARE ==
--- NOTE | 2021-08-21 10:37 | MM ---
Reason for Exam: Screening (asymptomatic). Last mammogram was performed 1 year(s) and 3 month(s) ago. Patient History: Menarche at age 14. First Full-Term at age 19. Hysterectomy at age 28. Postmenopausal. Other cancer, age 28. Patient used Hormonal Contraceptives for 4 years. Bilateral Excisional Biopsy. Risk Values: Silvana 5 year model risk: 1.3%. NCI Lifetime model risk: 2.0%. Prior Study Comparison: 05/17/2020 Bilateral Screening Mammogram, [facility]. 05/24/2020 Right Diagnostic Mammogram, [facility]. Tissue Density: The breast tissue is heterogeneously dense. This may lower the sensitivity of mammography. Findings: Analyzed By CAD. A few scattered benign punctate and round calcifications are redemonstrated on both sides. No significant change from prior exams. Overall Assessment: Negative, BI-RAD 1 Management: Screening Mammogram of both breasts in 1 year. A clinical breast exam by your physician is recommended on an annual basis and results should be correlated with mammographic findings. Also, the patient should continue monthly self breast exams. Electronically signed and approved by: Marcell Escobar M.D. Radiologist
== END | disposition home or self-care (01) ==
LOC: RADMAMWWP 10:09
PROVIDERS: ATTEND Internal Medicine Geriatric Medicine
DX: Z12.31 Encounter for screening mammogram for malignant neoplasm of breast (principal); R92.8 Other abnormal and inconclusive findings on diagnostic imaging of breast
CPT/HCPCS: 77063; 77067

== ENCOUNTER → 2024-09-02 | Outpatient (CLI) | payer MEDICARE ==
[2024-09-02 16:30] LABS: Basophils # (A) 0.05 10*3/uL (0.00-0.10); Basophils % (A) 0.8 %; Eosinophils % (A) 6.2 %; HCT 36.9 % (37.2-46.3); Lymphocytes # (A) 1.92 10*3/uL (0.90-5.00); Lymphocytes % (A) 29.8 %; MCH 32.4 pg (27.0-32.0); MCHC 32.5 g/dL (32.0-37.0); MCV 99.7 fL (80.0-97.0); Mean Platelet Volume 9.5 fL (9.5-12.2); Monocytes # (A) 0.53 10*3/uL (0.20-1.00); Monocytes % (A) 8.2 %; Neutrophils # (A) 3.53 10*3/uL (1.80-7.70); Neutrophils % (A) 54.8 %; Platelet Count 170 10*3/uL (140-440); RDW 13.7 % (11.5-14.5); WBC 6.44 10*3/uL (4.50-10.00)
[2024-09-02 16:47] LABS: ALT 14 U/L (4-34); AST 35 U/L (14-36); African American GFR (CKD) 52 (>60 ml/min/1.73 sqM); Albumin 3.8 g/dL (3.5-5.0); Alkaline Phosphatase 90 U/L (38-126); Anion Gap 9 mmol/L; Blood Urea Nitrogen 16 mg/dL (7-17); Calcium 9.1 mg/dL (8.4-10.2); Carbon Dioxide 27 mmol/L (22-30); Chloride 103 mmol/L (98-107); Glucose 92 mg/dL (74-99); Non-African American GFR(CKD) 46 (>60 ml/min/1.73 sqM); Potassium 3.8 mmol/L (3.5-5.1); Sodium 139 mmol/L (137-145); Total Bilirubin 0.8 mg/dL (0.2-1.3); Total Protein 7.7 g/dL (6.3-8.2)
[2024-09-03 02:17] LABS: Chol/HDL Ratio 3.32 Ratio; LDL Cholesterol,Calculated 110.5 mg/dL (0.0-131.0)
--- NOTE | 2024-09-03 09:48 | MM ---
Reason for Exam: Screening (asymptomatic). Last mammogram was performed 3 year(s) and 0 month(s) ago. Patient History: Menarche at age 14. First Full-Term at age 19. Hysterectomy at age 28. Postmenopausal. Other cancer, age 28. Patient used Hormonal Contraceptives for 4 years. Bilateral Excisional Biopsy. Risk Values: Silvana 5 year model risk: 1.2%. NCI Lifetime model risk: 1.4%. Prior Study Comparison: 05/17/2020 Bilateral Screening Mammogram, [facility]. 05/24/2020 Right Diagnostic Mammogram, [facility]. 08/16/2021 Bilateral MG 3D screening mammo w/cad, [facility]. Tissue Density: There are scattered areas of fibroglandular density. Findings: Analyzed By CAD. Right breast: There is no suspicious group of microcalcifications or new suspicious mass. Left breast: There is no suspicious group of microcalcifications or new suspicious mass. Overall Assessment: Negative, BI-RAD 1 Management: Screening Mammogram of both breasts in [address] [facility] will attempt to contact patient to return for supplemental views and ultrasound if indicated. Patient should continue monthly self-breast exams. A clinical breast exam by your physician is recommended on an annual basis. This exam should not preclude additional follow-up of suspicious palpable abnormalities. Note on Silvana scores and lifetime risk: 1. A Silvana score greater than 3% is considered moderate risk. If this is the case, consider specialist referral to assess eligibility for a risk reducing agent. 2. If overall lifetime risk for the development of breast cancer is 20% or higher, the patient may qualify for future screening with alternating mammogram and breast MRI. [facility], , 09/03/2024 9:45 AM. Electronically signed and approved by: Alberto Martinez DO
--- NOTE | 2024-09-05 07:23 | BD ---
EXAMINATION TYPE: Axial Bone Density DATE OF EXAM: 09/02/2024 CLINICAL HISTORY: 83 years old Female. ICD-10 CODE: M810 OSTEO , Additional History: Height: 61.5 in Weight: 155 lbs FRAX RISK QUESTIONS: History of Fracture in Adulthood: lt ankle fx age 50; rt tib/fib age 79 Secondary Osteoporosis: 3. Menopause before 45: total hysterectomy age 28 EXAM MEASUREMENTS: Bone mineral densitometry was performed using the [email or web address] System. Bone mineral density as measured about the Lumbar spine is: ----- L1-L4(G/cm2): 1.361 T Score Values are as follows: ----- L1: 1.6 ----- L2: 1.0 ----- L3: 1.3 ----- L4: 1.9 ----- L1-L4: 1.5 Z Score Values are as follows: ----- L1: 3.4 ----- L2: 2.7 ----- L3: 3.1 ----- L4: 3.7 ----- L1-L4: 3.2 Bone mineral density has: Decreased -0.2% since study of: 05/17/2020 Bone mineral density about the R hip (g/cm2): 0.921 Bone mineral density about the L hip (g/cm2): 0.865 T Score values are as follows: -----R Neck: -1.7 -----L Neck: -2.0 -----R Total: -0.7 -----L Total: -1.1 Z Score values are as follows: -----R Neck: 0.5 -----L Neck: 0.2 -----R Total: 1.4 -----L Total: 1.0 Bone mineral density has: Decreased -0.6% since study of: 05/17/2020 FRAX%s: The graph provided illustrates a 22.3% chance for a major osteoporotic fx and a 6.3% chance f or the hips probability for fx in 10 years time. IMPRESSION: NOTE: T-SCORE=SD OF THE YOUNG ADULT MEAN. [facility], , 09/05/2024 7:21 AM
== END | disposition home or self-care (01) ==
LOC: RADBDWWP 15:23
PROVIDERS: ATTEND Internal Medicine Geriatric Medicine
DX: Z12.31 Encounter for screening mammogram for malignant neoplasm of breast (principal); R92.323 Mammographic fibroglandular density, bilateral breasts; M85.89 Other specified disorders of bone density and structure, multiple sites; M81.0 Age-related osteoporosis without current pathological fracture; Z78.0 Asymptomatic menopausal state; Z92.0 Personal history of contraception
CPT/HCPCS: 77063; 77067; 77080; 80053; 80061; 83036; 84439; 84443; 85025